=== PATIENT | female | born 1940 | race Caucasian/White ===

== ENCOUNTER 2020-10-03 19:19 | Emergency (ER) | payer MEDICARE, MEDICAID ==
--- NOTE | 2020-10-03 18:11 | CT ---
PROCEDURE INFORMATION: Exam: CT Head Without Contrast Exam date and time: 10/03/2020 5:59 PM Age: 80 years old Clinical indication: Weakness, facial; Additional info: Right weakness; Rule out stroke TECHNIQUE: Imaging protocol: Computed tomography of the head without contrast. Radiation optimization: All CT scans at this facility use at least one of these dose optimization techniques: automated exposure control; mA and/or kV adjustment per patient size (includes targeted exams where dose is matched to clinical indication); or iterative reconstruction. Other technique: STROKE PROTOCOL was implemented. COMPARISON: No relevant prior studies available. FINDINGS: Brain: Age-related involutional changes and chronic microvascular ischemic disease. No evidence for acute transcortical infarct. No mass effect or midline shift. No extra-axial collection. No acute intracranial hemorrhage. Basal cisterns are patent. Cerebral ventricles: No ventriculomegaly. Bones/joints: Unremarkable. No acute fracture. Paranasal sinuses: Visualized sinuses are unremarkable. No fluid levels. Mastoid air cells: Visualized mastoid air cells are well aerated. Orbital cavity: Bilateral cataract surgery. 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 Soft tissues: Unremarkable. IMPRESSION: 1. No evidence for acute transcortical infarct, acute intracranial hemorrhage, or mass effect. [place] Stroke Program Early CT Score (ASPECTS) = 10 2. 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
[2020-10-03 18:26] VITALS: BP 148/72; PULSE 86
[2020-10-03 18:55] LABS: ANION GAP 13.2 mEq/L (7-13); CHLORIDE,CL 92 mmol/L (98-107); SODIUM,NA 130 mmol/L (136-145)
--- NOTE | 2020-10-03 19:16 | EDM.PDOC ---
ED HPI GENERAL MEDICAL PROBLEM - General Chief Complaint: Neuro Symptoms/Deficits Stated Complaint: STROKE CODE Time Seen by Provider: 10/03/20 18:21 Source of Information: Reports: Patient, RN, RN Notes Reviewed, Other ([facility] staff nurse) History Limitations: Reports: No Limitations - History of Present Illness INITIAL COMMENTS - FREE TEXT/NARRATIVE: Patient presents to the ED via EMS from the [facility] for new onset right- sided weakness. Stroke code called prior to her arrival. Per [facility] staff the patient has been "off" all day; they state she was not as talkative or active as she normally is. A staff member noticed she had not been using her right arm very much and thought she may be having a stroke. The patient arrived to the ED alert and talking; she is accompanied by the nurse who cares for the [facility] residents. The nurse states Lorena is talking and acting like her normal self. Due to physical and mental deficits the patient is a poor hi storian, but is able to follow all verbal commands. She denies pain to all areas of her body. Per the [facility] nurse, there has been no change to her diet or medications. She has been afebrile and in good health. - Related Data Allergies Allergy/AdvReac Type Severity Reaction Status Date / Time cefprozil [From Cefzil] Allergy Cannot Verified 10/03/20 18:26 Remember Cephalosporins Allergy Cannot Verified 10/03/20 18:26 Remember haloperidol [From Haldol] Allergy Cannot Verified 10/03/20 18:26 Remember haloperidol lactate Allergy Cannot Verified 10/03/20 18:26 [From Haldol] Remember Home Meds: Home Meds Ascorbate Calcium [Vitamin C] 500 mg PO BID 02/28/15 [History] Imipramine HCl [Imipramine] 25 mg PO BEDTIME 02/28/15 [History] Mineral Oil 45 ml PO DAILY 02/28/15 [History] Mirabegron [Myrbetriq] 50 mg PO DAILY 02/28/15 [History] Multivitamin [Multi-Vitamin Daily] 1 tab PO DAILY 02/28/15 [History] Potassium Chloride 20 meq PO DAILY 02/28/15 [History] Psyllium Seed (With Sugar) [Natural Fiber Lax Powder] 1 tbsp PO TID 02/28/15 [History] Raloxifene [Evista] 60 mg PO DAILY 02/28/15 [History] Sennosides/Docusate Sodium [Senna-Docusate Sodium] 1 tab PO BID 02/28/15 [History] risperiDONE [RisperiDAL] 0.5 mg PO BID 02/28/15 [History] Triamterene/Hydrochlorothiazid [Dyazide 37.5-25] 1 tab PO DAILY 05/17/16 [History] Past Medical History HEENT History: Reports: Impaired Vision Other HEENT History: wears glasses Cardiovascular 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 Respiratory 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 Gastrointestinal History: Reports: Chronic Constipation Genitourinary History: Reports: Urinary Incontinence 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 Musculoskeletal History: Reports: Osteoporosis Neurological 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 Psychiatric History: Reports: Depression, Other (See Below) Other Psychiatric History: Delirim, depressive disorder, severe intellectual disabilities Endocrine/Metabolic 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 Hematologic 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 Immunologic 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 Oncologic (Cancer) 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 Dermatologic 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 - Infectious Disease History Infectious Disease 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 - Past Surgical History Head Surgeries/Procedures: Reports: None Social & Family History - Family History Family Medical History: Noncontributory - Tobacco Use Tobacco Use Status *Q: Never Tobacco User Second Hand Smoke Exposure: No - Caffeine Use Caffeine Use: Reports: None - Recreational Drug Use Recreational Drug Use: No - Living Situation & Occupation Living situation: Reports: Single, Extended Care Facility Occupation: Disabled ED ROS GENERAL - Review of Systems Review Of Systems: Comprehensive ROS is negative, except as noted in HPI. ED EXAM, NEURO - Physical Exam Exam: See Below Exam Limited By: Physical Impairment General Appearance: Alert, No Apparent Distress Eye Exam: Right Eye: Other (Exotropia ), Left Eye: EOMI, Bilateral Eye: PERRL Ears: Normal External Exam, Normal Canal Nose: Normal Inspection, Normal Mucosa, No Blood ( ) Throat/Mouth: Normal Inspection, No Airway Compromise Head Exam: Atraumatic Neck: Normal Inspection, Supple, Non-Tender Respiratory/Chest: No Respiratory Distress, Lungs Clear, Normal Breath Sounds, No Accessory Muscle Use, Chest Non-Tender Cardiovascular: Regular Rate, Rhythm, No Edema, No Gallop, No JVD, No Rub, Systolic Murmur (3/6; Loudest over the pulmonic area) GI/Abdominal: Normal Bowel Sounds, Soft, Non-Tender, No Distention, No Mass Neurological: Alert, Normal Mood/Affect, CN II-XII Intact, No Motor/Sensory Deficits, Withdraws to Pain (To all four extremities and trunk), Other (Moves all extremities to command) Back Exam: Normal Inspection, Decreased Range of Motion (Normal for patient d/t body habitus; Kyphosis). No: CVA Tenderness (L), CVA Tenderness (R) Extremities: Normal Inspection, Normal Range of Motion, Non-Tender, No Pedal Edema, Normal Capillary Refill Skin Exam: Warm, Dry, Intact, Normal Color, No Rash. No: Ecchymosis, Erythema, Mottled, Pallor, Petechiae #1 Interpretation EKG Date: 10/03/20 Time: 18:56 Rhythm: NSR Rate (Beats/Min): 76 [place]: Normal P-Wave: Present QRS: Normal ST-T: Normal QT: Normal Comparison: NA - No Prior EKG (NSR; No evidence of acute ischemia) Course - Vital Signs Last Recorded V/S: Last Vital Signs Temp 95.8 F L 10/03/20 18:09 Pulse 86 10/03/20 18:09 Resp 18 10/03/20 18:09 BP 148/72 H 10/03/20 18:09 Pulse Ox 95 10/03/20 18:09 - Orders/Labs/Meds Labs: Laboratory Tests 10/03/20 10/03/20 10/03/20 Range/Units 18:11 18:11 18:11 WBC 5.0 (5.0-10.0) 10^3/uL RBC 3.78 L (4.2-5.4) 10^6/uL Hgb 11.1 L D (12.0-16.0) g/dL Hct 33.0 L (37.0-47.0) % MCV 87.3 (80-100) fL MCH 29.4 (27.0-34.0) pg MCHC 33.6 (33.0-35.0) g/dL Plt Count 180 D (150-450) 10^3/uL Neut % (Auto) 54.6 (42.2-75.2) % Lymph % (Auto) 23.6 (20.5-50.1) % [place] % (Auto) 16.6 H (2-8) % Eos % (Auto) 4.6 H (1.0-3.0) % Baso % (Auto) 0.6 (0.0-1.0) % PT (9.0-12.0) SEC INR (0.9-1.2) APTT (22.0-34.0) SEC D-Dimer, Quantitative (0-400) ng/mL Sodium 130 L (136-145) mmol/L Potassium 4.2 (3.5-5.1) mmol/L Chloride 92 L (98-107) mmol/L Carbon Dioxide 29 (21-32) mmol/L Anion Gap 13.2 H (7-13) mEq/L BUN 17 (7-18) mg/dL Creatinine 0.81 (0.55-1.02) mg/dL Est Cr Clr Drug Dosing 43.19 mL/min Estimated GFR (MDRD) > 60 BUN/Creatinine Ratio 21.0 (No establ ref range) Glucose 108 H (74-99) mg/dL Lactic Acid 4.8 H* (0.4-2.0) mmol/L Calcium 9.1 (8.5-10.1) mg/dL Phosphorus 4.0 (2.6-4.7) mg/dL Magnesium 1.8 (1.8-2.4) mg/dL Total Bilirubin 0.5 (0.2-1.0) mg/dL AST 40 H (15-37) U/L ALT 48 (14-59) U/L Alkaline Phosphatase 119 H (46-116) U/L Troponin I < 0.017 (0.000-0.056) ng/mL C-Reactive Protein 4.6 H (0.0-0.9) mg/dL Total Protein 7.1 (6.4-8.2) g/dL Albumin 3.4 (3.4-5.0) g/dL Globulin 3.7 Albumin/Globulin Ratio 0.9 //20 Range/Units 18:11 WBC (5.0-10.0) 10^3/uL RBC (4.2-5.4) 10^6/uL Hgb (12.0-16.0) g/dL Hct (37.0-47.0) % MCV (80-100) fL MCH (27.0-34.0) pg MCHC (33.0-35.0) g/dL Plt Count (150-450) 10^3/uL Neut % (Auto) (42.2-75.2) % Lymph % (Auto) (20.5-50.1) % [place] % (Auto) (2-8) % Eos % (Auto) (1.0-3.0) % Baso % (Auto) (0.0-1.0) % PT 10.9 (9.0-12.0) SEC INR 1.2 (0.9-1.2) APTT 37.0 H (22.0-34.0) SEC D-Dimer, Quantitative 253 (0-400) ng/mL Sodium (136-145) mmol/L Potassium (3.5-5.1) mmol/L Chloride (98-107) mmol/L Carbon Dioxide (21-32) mmol/L Anion Gap (7-13) mEq/L BUN (7-18) mg/dL Creatinine (0.55-1.02) mg/dL Est Cr Clr Drug Dosing mL/min Estimated GFR (MDRD) BUN/Creatinine Ratio (No establ ref range) Glucose (74-99) mg/dL Lactic Acid (0.4-2.0) mmol/L Calcium (8.5-10.1) mg/dL Phosphorus (2.6-4.7) mg/dL Magnesium (1.8-2.4) mg/dL Total Bilirubin (0.2-1.0) mg/dL AST (15-37) U/L ALT (14-59) U/L Alkaline Phosphatase (46-116) U/L Troponin I (0.000-0.056) ng/mL C-Reactive Protein (0.0-0.9) mg/dL Total Protein (6.4-8.2) g/dL Albumin (3.4-5.0) g/dL Globulin Albumin/Globulin Ratio - Radiology Interpretation Free Text/Narrative:: [facility] Final Radiology Report Call: [phone] assistance Online chat: [email or web address] Name: LORENA SHI Age: 80Years F Date: 10/03/2020 SSN: -- : [id number] Study: CT HEAD WO CONT Requesting Physician: Alee Strauss Images: 200 Addl Studies: Provided Clinical History: Right weakness; Rule out stroke Contrast: Without Contrast Medium: Contrast Amount: Contrast Method: Page 1 of 2 PROCEDURE INFORMATION: Exam: CT Head Without Contrast Exam date and time: 10/03/2020 5:59 PM Age: 80 years old Clinical indication: Weakness, facial; Additional info: Right weakness; Rule out stroke TECHNIQUE: Imaging protocol: Computed tomography of the head without contrast. Radiation optimization: All CT scans at this facility use at least one of these dose optimization techniques: automated exposure control; mA and/or kV adjustment per patient size (includes targeted exams where dose is matched to clinical indication); or iterative re construction. Other technique: STROKE PROTOCOL was implemented. COMPARISON: No relevant prior studies available. FINDINGS: Brain: Age-related involutional changes and chronic microvascular ischemic di sease. No evidence for acute transcortical infarct. No mass effect or midline shift. No extra-axial collection. No acute intracranial hemorrhage. Basal cisterns are patent. Cerebral ventricles: No ventriculomegaly. Bones/joints: Unremarkable. No acute fracture. Paranasal sinuses: Visualized sinuses are unremarkable. No fluid levels. Mastoid air cells: Visualized mastoid air cells are well aerated. Orbital cavity: Bilateral cataract surgery. 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 Soft tissues: Unremarkable. IMPRESSION: 1. No evidence for acute transcortical infarct, acute intracranial hemorrhage, or mass effect. [place] Stroke Program Early CT Score (ASPECTS) = 10 JOSE GUADALUPELORENA | Final Radiology Report CONFIDENTIALITY STATEMENT This report is intended only for use by the referring physician, and only in accordance with law. If you received this in error, call [phone]. Page 2 of 2 2. 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 Thank you for allowing us to participate in the care of your patient. - Re-Assessments/Exams Free Text/Narrative Re-Assessment/Exam: 10/03/2020 CT negative for stroke; 1.3 cm mass noted to superolateral right orbit. Lactic acid elevated at 4.5 Discussed this finding with the REM nurse could be indicative of new onset seizure activity. Discussed following up with primary care provider regarding possibility of outpatient neuro consult. The REM nurse verbalized understanding and agreement with the plan of care. Departure - Departure Time of Disposition: 19:20 Disposition: DC/Tfer to [facility] Condition: Good Clinical Impression: Right arm weakness - Discharge Information *PRESCRIPTION DRUG MONITORING PROGRAM REVIEWED*: Not Applicable *COPY OF PRESCRIPTION DRUG MONITORING REPORT IN PATIENT EVELIO: Not Applicable Referrals: Antonio Bell MD [Primary Care Provider] - Forms: ED Department Discharge Additional Instructions: CT of head negative for stroke. Follow up with primary care provider regarding findings of today's visit. Consider neurology consult should symptoms return. Sepsis Event Note (ED) - Evaluation Sepsis Screening Result: No Definite Risk
== END 2020-10-03 19:41 ==
LOC: DL.ED 19:19
DX: M62.81 Muscle weakness (generalized) (principal); F32.9 Major depressive disorder, single episode, unspecified; Z79.899 Other long term (current) drug therapy; Z88.1 Allergy status to other antibiotic agents; Z88.8 Allergy status to other drugs, medicaments and biological substances
CPT/HCPCS: 36415; 70450; 80053; 83605; 83735; 84100; 84484; 85025; 85379; 85610; 85730; 86140; 87040; 93005; 99285-25

== ENCOUNTER 2020-10-13 04:12 | Emergency (ER) | payer MEDICARE, MEDICAID ==
[2020-10-13 04:20] VITALS: BP 102/50; PULSE 74
[2020-10-13 05:19] LABS: ANION GAP 13.3 mEq/L (7-13); CHLORIDE,CL 88 mmol/L (98-107); SODIUM,NA 122 mmol/L (136-145)
[2020-10-13] MEDS ORDERED: Sodium Chloride 0.9% 500 ML IV SCH (05:30)
--- NOTE | 2020-10-13 06:55 | EDM.PDOC ---
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 She had severe developmental delay as well as multiple mental health issues. She is on multiple psychoactive medications. senior living staff report that this morning she had a seizure that lasted about 60 seconds. They called the ambulance, when ambulance arrived, they observed a second 60 second seizure. She is arousable, but very sleepy. child welfare caseworker does not report any other symptoms the past 48 hours. In doing a chart review, I note that she does not currently have a diagnosis of sleep apnea. (Jam Cortez) - Related Data Allergies Allergy/AdvReac Type Severity Reaction Status Date / Time cefprozil [From Cefzil] Allergy Cannot Verified 10/13/20 04:39 Remember Cephalosporins Allergy Cannot Verified 10/13/20 04:39 Remember haloperidol [From Haldol] Allergy Cannot Verified 10/13/20 04:39 Remember haloperidol lactate Allergy Cannot Verified 10/13/20 04:39 [From Haldol] Remember Home Meds: Home Meds Ascorbate Calcium [Vitamin C] 500 mg PO BID 02/28/15 [History] Imipramine HCl [Imipramine] 25 mg PO BEDTIME 02/28/15 [History] Mirabegron [Myrbetriq] 50 mg PO DAILY 02/28/15 [History] Multivitamin [Multi-Vitamin Daily] 1 tab PO DAILY 02/28/15 [History] Potassium Chloride 20 meq PO DAILY 02/28/15 [History] Psyllium Seed (With Sugar) [Natural Fiber Lax Powder] 1 tbsp PO TID 02/28/15 [History] Sennosides/Docusate Sodium [Senna-Docusate Sodium] 1 tab PO BID 02/28/15 [History] risperiDONE [RisperiDAL] 0.5 mg PO BID 02/28/15 [History] Triamterene/Hydrochlorothiazid [Dyazide 37.5-25] 1 tab PO ASDIRECTED 05/17/16 [History] Alendronate Sodium [Fosamax] 70 mg PO Q7D 10/13/20 [History] Cholecalciferol (Vitamin D3) [Vitamin D3] 1,000 units PO DAILY 10/13/20 [History] Erythromycin Base [Erythromycin 0.5% Ophth Oint] 1 applic EYEBOTH BEDTIME 10/13/20 [History] Naproxen 500 mg PO Q12H 10/13/20 [History] Oxybutynin [Oxybutynin ER] 5 mg PO DAILY 10/13/20 [History] Torsemide [Demadex] 20 mg PO DAILY 10/13/20 [History] Past Medical History HEENT History: Reports: Impaired Vision Other HEENT History: wears glasses Cardiovascular 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 Respiratory 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 Gastrointestinal History: Reports: Chronic Constipation Genitourinary History: Reports: Urinary Incontinence 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 Musculoskeletal History: Reports: Osteoporosis Neurological 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 Psychiatric History: Reports: Depression, Other (See Below) Other Psychiatric History: Delirim, depressive disorder, severe intellectual disabilities Endocrine/Metabolic 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 Hematologic 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 Immunologic 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 Oncologic (Cancer) 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 Dermatologic 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 - Infectious Disease History Infectious Disease 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 - Past Surgical History Head Surgeries/Procedures: Reports: None <Jam Cortez - Last Filed: 10/13/20 06:50> Social & Family History - Family History Family Medical History: No Pertinent Family History - Tobacco Use Tobacco Use Status *Q: Never Tobacco User Second Hand Smoke Exposure: No - Caffeine Use Caffeine Use: Reports: None - Recreational Drug Use Recreational Drug Use: No - Living Situation & Occupation Living situation: Reports: Single, Extended Care Facility Occupation: Disabled <Jam Cortez - Last Filed: 10/13/20 06:50> ED ROS GENERAL - Review of Systems Review Of Systems: Unable To Obtain Reason Not Obtained: Altered mental status <Jam Cortez - Last Filed: 10/13/20 06:50> - Physical Exam Exam: See Below <aJm Cortez - Last Filed: 10/13/20 06:50> - Physical Exam Text/Narrative:: General: Lorena is a 80-year-old woman in no acute distress. She is showing no signs of respiratory distress, no tachypnea or accessory muscle use Oropharynx is clear, mucous membranes are moist Neck: Supple, no lymphadenopathy Heart: Regular rate and rhythm, 2 out of 6 systolic murmur over the left sternal border Lungs: Clear to auscultation throughout Neurological: Neurological exam is difficult secondary to her developmental delay as well as her altered mental status and post ictal state. She is moving all of her extremities, and attempts to sit up on her own. No obvious neurological deficit is noted EKG shows normal sinus rhythm with a first-degree AV block. We do not have any previous EKGs to compare to. (Jam Cortez) Course <Jam Cortez - Last Filed: 10/13/20 06:50> <Shari Vergara - Last Filed: 10/13/20 09:17> - Vital Signs Last Recorded V/S: Last Vital Signs Temp 95.9 F L 10/13/20 04:13 Pulse 74 10/13/20 04:13 Resp 12 10/13/20 04:13 BP 102/50 L 10/13/20 04:13 Pulse Ox 92 L 10/13/20 04:13 - Orders/Labs/Meds Orders: Active Orders 24 hr Category Date Time Status CULTURE URINE [RM] Stat Lab 10/13/20 08:50 Received Sodium Chloride 0.9% [Normal Saline] 500 ml Med 10/13/20 05:30 Active IV .BOLUS Medication Orders Sodium Chloride (Normal Saline) 500 mls @ 999 mls/hr IV .BOLUS GLENNY Last Admin: 10/13/20 05:38 Dose: 999 mls/hr Documented by: SHASTA Labs: Laboratory Tests 10/13/20 10/13/20 10/13/20 Range/Units 04:50 04:50 07:51 WBC 6.7 (5.0-10.0) 10^3/uL RBC 3.43 L (4.2-5.4) 10^6/uL Hgb 10.2 L (12.0-16.0) g/dL Hct 29.4 L (37.0-47.0) % MCV 85.7 (80-100) fL MCH 29.7 (27.0-34.0) pg MCHC 34.7 (33.0-35.0) g/dL Plt Count 158 (150-450) 10^3/uL Neut % (Auto) 66.8 (42.2-75.2) % Lymph % (Auto) 12.7 L (20.5-50.1) % [place] % (Auto) 17.5 H (2-8) % Eos % (Auto) 2.7 (1.0-3.0) % Baso % (Auto) 0.3 (0.0-1.0) % Sodium 122 L (136-145) mmol/L Potassium 4.3 (3.5-5.1) mmol/L Chloride 88 L (98-107) mmol/L Carbon Dioxide 25 (21-32) mmol/L Anion Gap 13.3 H (7-13) mEq/L BUN 16 (7-18) mg/dL Creatinine 0.75 (0.55-1.02) mg/dL Est Cr Clr Drug Dosing 46.65 mL/min Estimated GFR (MDRD) > 60 BUN/Creatinine Ratio 21.3 (No establ ref range) Glucose 91 (74-99) mg/dL Calcium 8.6 (8.5-10.1) mg/dL Total Bilirubin 0.4 (0.2-1.0) mg/dL AST 51 H (15-37) U/L ALT 70 H (14-59) U/L Alkaline Phosphatase 110 (46-116) U/L Troponin I < 0.017 < 0.017 (0.000-0.056) ng/mL Total Protein 6.1 L (6.4-8.2) g/dL Albumin 2.8 L (3.4-5.0) g/dL Globulin 3.3 Albumin/Globulin Ratio 0.85 Urine Color (YELLOW) Urine Appearance (CLEAR) Urine pH (5.0-9.0) Ur Specific [place] (1.005-1.030) Urine Protein (NEGATIVE) Urine Glucose (UA) (NEGATIVE) Urine Ketones (NEGATIVE) Urine Occult Blood (NEGATIVE) Urine Nitrite (NEGATIVE) Urine Bilirubin (NEGATIVE) Urine Urobilinogen (0.2-1.0) mg/dL Ur Leukocyte Esterase (NEGATIVE) Urine RBC /HPF Urine WBC (0-5/HPF) /HPF Ur Epithelial Cells (NOT SEEN) /HPF Triple Phos Crystals (NOT SEEN) /HPF Amorphous Sediment (NOT SEEN) /HPF Urine Bacteria (0-FEW/HPF) /HPF Urine Mucus (NOT SEEN) /LPF 10/13/20 Range/Units 08:50 WBC (5.0-10.0) 10^3/uL RBC (4.2-5.4) 10^6/uL Hgb (12.0-16.0) g/dL Hct (37.0-47.0) % MCV (80-100) fL MCH (27.0-34.0) pg MCHC (33.0-35.0) g/dL Plt Count (150-450) 10^3/uL Neut % (Auto) (42.2-75.2) % Lymph % (Auto) (20.5-50.1) % [place] % (Auto) (2-8) % Eos % (Auto) (1.0-3.0) % Baso % (Auto) (0.0-1.0) % Sodium (136-145) mmol/L Potassium (3.5-5.1) mmol/L Chloride (98-107) mmol/L Carbon Dioxide (21-32) mmol/L Anion Gap (7-13) mEq/L BUN (7-18) mg/dL Creatinine (0.55-1.02) mg/dL Est Cr Clr Drug Dosing mL/min Estimated GFR (MDRD) BUN/Creatinine Ratio (No establ ref range) Glucose (74-99) mg/dL Calcium (8.5-10.1) mg/dL Total Bilirubin (0.2-1.0) mg/dL AST (15-37) U/L ALT (14-59) U/L Alkaline Phosphatase (46-116) U/L Troponin I (0.000-0.056) ng/mL Total Protein (6.4-8.2) g/dL Albumin (3.4-5.0) g/dL Globulin Albumin/Globulin Ratio Urine Color Yellow (YELLOW) Urine Appearance Turbid (CLEAR) Urine pH 8.0 (5.0-9.0) Ur Specific [place] 1.020 (1.005-1.030) Urine Protein 30 H (NEGATIVE) Urine Glucose (UA) Negative (NEGATIVE) Urine Ketones Negative (NEGATIVE) Urine Occult Blood Trace-intact H (NEGATIVE) Urine Nitrite Positive H (NEGATIVE) Urine Bilirubin Negative (NEGATIVE) Urine Urobilinogen 0.2 (0.2-1.0) mg/dL Ur Leukocyte Esterase Moderate H (NEGATIVE) Urine RBC 10-20 H /HPF Urine WBC >100 H (0-5/HPF) /HPF Ur Epithelial Cells Few (NOT SEEN) /HPF Triple Phos Crystals Moderate H (NOT SEEN) /HPF Amorphous Sediment Many H (NOT SEEN) /HPF Urine Bacteria Many H (0-FEW/HPF) /HPF Urine Mucus Few H (NOT SEEN) /LPF Meds: Medications Generic Name Dose Route Start Last Admin Trade Name Freq PRN Reason Stop Dose Admin Sodium Chloride 500 mls @ 999 mls/hr 10/13/20 05:30 10/13/20 05:38 Normal Saline IV 999 mls/hr .BOLUS GLENNY Administration - Re-Assessments/Exams Free Text/Narrative Re-Assessment/Exam: Nursing notes hypotension, with blood pressures of 70/30, repeated was 100/30. Normal saline bolus was started, noted improvement in her blood pressure. (Jam Cortez) Free Text/Narrative Re-Assessment/Exam: Repeat troponin was normal. Patient remained stable. She had a 25 second seizure prior to discharge. Chart review shows her sodium has been around [address] Head CT on 10/03 was negative for stroke. She was diagnosed with new onset seizures and staff was informed at that time that she needed to follow up with her PCP and neurology at that time. 10/13/20 08:26 UA consistent with UTI. Will treat with bactrim 10/13/20 09:15 (Shari Vergara) Departure <Jam Cortez - Last Filed: 10/13/20 06:50> - Departure Time of Disposition: 08:46 <Shari Vergara - Last Filed: 10/13/20 09:17> - Departure Disposition: Home, Self-Care 01 Clinical Impression: Hyponatremia, Seizure UTI (urinary tract infection) Qualifiers: Urinary tract infection type: acute cystitis Hematuria presence: with hematuria Qualified Code(s): N30.01 - Acute cystitis with hematuria - Discharge Information Instructions: Managing Non-Epileptic Seizures, Adult Forms: ED Department Discharge Additional Instructions: Recommend holding imipramine until seen by primary care provider Recommend monitoring and documenting her water intake Bactrim BID for 7 days for UTI Call/return if symptoms worsen Recommend follow up with primary care provider in 2-3 days Sepsis Event Note (ED) - Evaluation Sepsis Screening Result: No Definite Risk <Jam Cortez - Last Filed: 10/13/20 06:50> - Focused Exam Vital Signs: Vital Signs Temp Pulse Resp BP Pulse Ox 10/13/20 04:13 95.9 F L 74 12 102/50 L 92 L - My Orders Last 24 Hours: My Active Orders 10/13/20 08:50 CULTURE URINE [RM] Stat - Assessment/Plan Last 24 Hours: My Active Orders 10/13/20 08:50 CULTURE URINE [RM] Stat
== END 2020-10-13 09:08 | disposition home or self-care (01) ==
LOC: DL.ED 04:12
DX: R56.9 Unspecified convulsions (principal); E87.1 Hypo-osmolality and hyponatremia; N30.01 Acute cystitis with hematuria; R41.82 Altered mental status, unspecified; F32.9 Major depressive disorder, single episode, unspecified; I44.0 Atrioventricular block, first degree; Z88.1 Allergy status to other antibiotic agents; Z88.8 Allergy status to other drugs, medicaments and biological substances; Z79.899 Other long term (current) drug therapy
CPT/HCPCS: 36415; 80053; 81001; 84484; 85025; 87086; 87088; 87186; 93005; 99283; 99285; J7040

== ENCOUNTER 2020-10-14 10:22 | Inpatient (IN) | payer MEDICARE, MEDICAID ==
[2020-10-14] MEDS ORDERED: Ondansetron 4 MG Tab.DIS PO PRN (11:11)
[2020-10-14] MEDS ORDERED: Acetaminophen 325 MG Tab PO PRN (11:11)
[2020-10-14] MEDS ORDERED: Ondansetron 4 MG/2 ML SDV IVPUSH PRN (11:11)
--- NOTE | 2020-10-14 11:19 | PCM.HP ---
H&P History of Present Illness - General Date of Service: 10/14/20 Admit Problem/Dx: Admission Diagnosis/Problem Admission Diagnosis/Problem Altered mental status Source of Information: Detention Records, Provider History Limitations: Reports: Altered Mental Status - History of Present Illness Initial Comments - Free Text/Narative: Patient is 74-year-old female with a medical history of severe mental retardation, chronic constipation, chronic lower extremity edema, dive rticulosis, seizure disorder, aortic stenosis, recent Covid 19 pneumonia a month ago who presents with worsening cognitive impairment, abdominal pain and seizure activity. History is obtained from patient's caregivers at her facility of residence. Patient does have some cognitive impairment however, for the past 1 month, since she had COVID-19 they have noticed a progressive decline in her mental status. Patient has become more confused especially in the past 1 week. She is more forgetful even of her date of which she is usually aware of. She has had episodes of visual and auditory hallucinations, reporting seeing her parents who are late. She has had a poor appetite and generalized weakness. She now requires an assist of 2 to ambulate. Patient was noticed to be shaky and then becoming stiff with eyes rolling yesterday morning that was concerning for seizure activity. She had a similar seizure activity a week prior. Before now, she has not had any seizure in the past 2 years. She has also gained 10 pounds in the last 10 days with significant lower extremity edema. She was brought to the ER and labs showed positive nitrate and leukocyte esterase along with many bacteria significant for UTI. Sodium was 122, chloride was 88. Creatinine was within normal limits. Patient was started on Bactrim and discharged home. Due to worsening mental status and generalized weakness, patient was admitted today. She also complains of tooth pain. - Related Data Allergies/Adverse Reactions: Allergies Allergy/AdvReac Type Severity Reaction Status Date / Time cefprozil [From Cefzil] Allergy Cannot Verified 10/14/20 11:05 Remember Cephalosporins Allergy Cannot Verified 10/14/20 11:05 Remember haloperidol [From Haldol] Allergy Cannot Verified 10/14/20 11:05 Remember haloperidol lactate Allergy Cannot Verified 10/14/20 11:05 [From Haldol] Remember Home Medications: Home Meds Ascorbate Calcium [Vitamin C] 500 mg PO BID 02/28/15 [History] Imipramine HCl [Imipramine] 25 mg PO BEDTIME 02/28/15 [History] Mirabegron [Myrbetriq] 50 mg PO QPM 02/28/15 [History] Multivitamin [Multi-Vitamin Daily] 1 tab PO DAILY 02/28/15 [History] Potassium Chloride 20 meq PO DAILY 02/28/15 [History] Psyllium Seed (With Sugar) [Natural Fiber Lax Powder] 1 tbsp PO TID 02/28/15 [Hi story] Sennosides/Docusate Sodium [Senna-Docusate Sodium] 1 tab PO BID 02/28/15 [History] risperiDONE [RisperiDAL] 0.5 mg PO BID 02/28/15 [History] Triamterene/Hydrochlorothiazid [Dyazide 37.5-25] 1 tab PO Q48H 05/17/16 [History] Alendronate Sodium [Fosamax] 70 mg PO Q7D 10/13/20 [History] Cholecalciferol (Vitamin D3) [Vitamin D3] 1,000 units PO DAILY 10/13/20 [History] Erythromycin Base [Erythromycin 0.5% Ophth Oint] 1 applic EYEBOTH BEDTIME 10/13/20 [History] Naproxen 500 mg PO Q12H 10/13/20 [History] Oxybutynin [Oxybutynin ER] 5 mg PO QPM 10/13/20 [History] Torsemide [Demadex] 20 mg PO DAILY 10/13/20 [History] Ibuprofen 200 mg PO Q6H PRN 10/14/20 [History] Magnesium Hydroxide [Milk of Magnesia] 30 ml PO DAILY PRN 10/14/20 [History] Past Medical History HEENT History: Reports: Impaired Vision Other HEENT History: Glasses Cardiovascular 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 Respiratory 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 Gastrointestinal History: Reports: Chronic Constipation Genitourinary History: Reports: Urinary Incontinence PATIENT CARE DIRECTOR 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 Musculoskeletal History: Reports: Osteoporosis Neurological 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 Psychiatric History: Reports: Depression, Other (See Below) Other Psychiatric History: Delirim, depressive disorder, severe intellectual disabilities Endocrine/Metabolic 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 Hematologic 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 Immunologic 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 Oncologic (Cancer) 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 Dermatologic 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 - Infectious Disease History Infectious Disease 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 - Past Surgical History Head Surgeries/Procedures: Reports: None Social & Family History - Family History Family Medical History: No Pertinent Family History - Caffeine Use Caffeine Use: Reports: None - Living Situation & Occupation Living situation: Reports: Single, Extended Care Facility Occupation: Disabled H&P Review of Systems - Review of Systems: Review Of Systems: See Below General: Reports: Malaise, Weakness, Decreased Appetite HEENT: Reports: No Symptoms, Other (tooth pain) Pulmonary: Reports: No Symptoms Cardiovascular: Reports: No Symptoms Gastrointestinal: Reports: Abdominal Pain, Constipation Genitourinary: Reports: No Symptoms Musculoskeletal: Reports: No Symptoms Skin: Reports: No Symptoms Psychiatric: Reports: Confusion, Hallucinations Neurological: Reports: Confusion, Seizure Hematologic/Lymphatic: Reports: No Symptoms Immunologic: Reports: No Symptoms Exam - Exam Exam: See Below - Exam General: Alert, Other (uncooperative) HEENT: PERRLA, Hearing Intact, Mucosa Moist & [place], Nares Patent, Normal Nasal Septum, Posterior Pharynx Clear, Conjunctiva Clear, EOMI, EACs Clear, TMs Clear Neck: Supple Lungs: Clear to Auscultation, Normal Respiratory Effort Cardiovascular: Regular Rate, Regular Rhythm GI/Abdominal Exam: Normal Bowel Sounds, No Organomegaly, No Distention, Tender Back Exam: Normal Inspection, Full Range of Motion, NT Extremities: Normal Inspection, Normal Range of Motion, Non-Tender, Normal Capillary Refill, Pedal Edema Skin: Warm, Dry, Intact Neurological: Cranial Nerves Intact, Reflexes Equal Bilateral Neuro Extensive - Mental Status: Alert, Disorientation to Place, Disorientation to Time Neuro Extensive - Motor, Sensory, Reflexes: CN II-XII Intact, Normal Gait, Normal Reflexes Psychiatric: Alert, Normal Affect, Normal Mood - Patient Data Result Diagrams: 10/14/20 11:40 10/14/20 11:40 Problem List Initiated/Reviewed/Updated: Yes Orders Last 24hrs: Active Orders 24 hr Category Date Time Status Patient Status [ADT] Routine ADT 10/14/20 11:12 Active Antiembolic Devices [RC] PER UNIT ROUTINE Care 10/14/20 11:14 Active Intake and Output [RC] QSHIFT Care 10/14/20 11:13 Active Oxygen Therapy [RC] PRN Care 10/14/20 11:12 Active Up With Assistance [RC] ASDIRECTED Care 10/14/20 11:11 Active VTE/DVT Education [RC] PER UNIT ROUTINE Care 10/14/20 11:12 Active Vital Signs [RC] Q4H Care 10/14/20 11:12 Active Nothing per Oral Now Diet [DIET] Diet 10/14/20 Lunch Active Chest 1V Frontal [CR] Routine Exams 10/14/20 11:11 Ordered CBC WITH AUTO DIFF [HEME] Stat Lab 10/14/20 11:11 Ordered COMPREHENSIVE METABOLIC PN,CMP [CHEM] Stat Lab 10/14/20 11:11 Ordered CULTURE BLOOD [BC] Stat Lab 10/14/20 11:16 Ordered CULTURE BLOOD [BC] Stat Lab 10/14/20 11:16 Ordered Acetaminophen [TylenoL] Med 10/14/20 11:11 Ordered 650 mg PO Q4H PRN Docusate Sodium [Colace] Med 10/14/20 11:11 Ordered 100 mg PO BID PRN Heparin Sodium Med 10/14/20 14:00 Ordered 5,000 units SUBCUT Q8HR Ondansetron [Zofran ODT] Med 10/14/20 11:11 Ordered 4 mg PO Q4H PRN Ondansetron [Zofran] Med 10/14/20 11:11 Ordered 4 mg IVPUSH Q4H PRN Sodium Chloride 0.9% [Normal Saline] 1,000 ml Med 10/14/20 11:15 Ordered IV ASDIRECTED Antiembolic Hose [OM.PC] Per Unit Routine Oth 10/14/20 11:13 Ordered Blood Culture x2 Reflex Set [OM.PC] Stat Oth 10/14/20 11:11 Ordered Resuscitation Status Routine Resus Stat 10/14/20 11:11 Ordered Medication Orders Acetaminophen (Tylenol) 650 mg PO Q4H PRN PRN Reason: Pain (Mild 1-3)/fever Docusate Sodium (Colace) 100 mg PO BID PRN PRN Reason: Constipation Heparin Sodium (Porcine) (Heparin Sodium) 5,000 units SUBCUT Q8HR [facility] Sodium Chloride (Normal Saline) 1,000 mls @ 100 mls/hr IV ASDIRECTED [facility] Ondansetron HCl (Zofran) 4 mg IVPUSH Q4H PRN PRN Reason: Nausea/Vomiting Ondansetron HCl (Zofran Odt) 4 mg PO Q4H PRN PRN Reason: nausea, able to take PO Assessment/Plan Comment:: Acute encephalopathy H/o cognitive impairment Encephalopathy likely due to hyponatremia vs UTI. - Treat underlying cause UTI - Stop bactrim - Start levofloxacin - UCx pending Severe hyponatremia Sodium was 122. Now 126. Likely due to thiazide use - Start NS at 100 cc/hr - Trend sodium. Allow for no more than 6-8 point change within 24 hours - Consider brain MRI bu unsure patient will be willing to stay still for test - Hold HCTZ Probable CHF Aortic stenosis She has chronic LE edema and on echo. BNP elevated at 205. - Consider diuresis, pending direction of sodium trend - Strict I/O and daily weights Hx of seizures Seizure activity Witnessed tonic clonic seizure. Suspect this was due to hyponatremia. - Seizure precautions - Resume home meds Elevated LFTs Likely hepatic congestion - Trend LFTs
[2020-10-14 12:17] LABS: ANION GAP 9.9 mEq/L (7-13); CHLORIDE,CL 88 mmol/L (98-107); SODIUM,NA 126 mmol/L (136-145)
--- NOTE | 2020-10-14 12:28 | CR ---
EXAMINATION: Chest 1V Frontal SEX: Female AGE: 80 years CLINICAL HISTORY: 80-year-old obese institutionalized patient with clinical encephalopathy. INTERPRETATION: (Exam extremely "technically difficult" due to patient physical and mental condition i.e. patient rotated and respiratory motion artifact) No comparison films immediately available. ABNORMAL. Normal cardiac silhouette without signs of alveolar edema. *Patchy peripheral consolidation without air bronchograms suggest "groundglass" pneumonic densities. Clinical correlation please. COVID test? Blunting the right costophrenic sulcus may reflect poor technique (versus small dependent effusion). No lung mass or hilar lymphadenopathy. No focal lobar infiltrate or atelectasis. No pneumothorax or pneumomediastinum. No foreign bodies. Midline tracheal bronchial airway unremarkable.
[2020-10-14] MEDS ORDERED: Magnesium Hydroxide 400 MG/5 ML Susp 30 ML Cup PO PRN (13:08)
[2020-10-14] MEDS ORDERED: cefTRIAXone 1 GM in Sodium Chloride 0.9% 50 ML IV SCH (13:15)
[2020-10-14] MEDS: Sodium Chloride 0.9% 1,000 ML IV SCH ×2 (13:23→23:06)
[2020-10-14] MEDS: Heparin Sodium 5,000 Units/ML Vial SUBCUT SCH ×2 (16:13→22:10)
[2020-10-14] MEDS: Levofloxacin 500 MG Tab PO SCH (16:19)
[2020-10-14] MEDS: Ibuprofen 200 MG Tab PO PRN (18:09)
[2020-10-14] MEDS: risperiDONE 0.5 MG Tab PO SCH (20:37)
[2020-10-14] MEDS: Oxybutynin 5 MG Tab.ER PO SCH (20:37)
[2020-10-14] MEDS: Psyllium Husk Powder Sugar Free 5.85 GM Packet PO SCH (20:38)
[2020-10-14] MEDS: Ascorbic Acid 500 MG Tab PO SCH (20:38)
[2020-10-14] MEDS: Erythromycin Base 0.5% Ophth Oint 3.5 GM Tube EYEBOTH SCH (22:09)
[2020-10-15] MEDS: Heparin Sodium 5,000 Units/ML Vial SUBCUT SCH ×3 (05:29→23:09)
[2020-10-15 07:35] LABS: ANION GAP 11.3 mEq/L (7-13); CHLORIDE,CL 92 mmol/L (98-107); SODIUM,NA 128 mmol/L (136-145)
[2020-10-15] MEDS: Ascorbic Acid 500 MG Tab PO SCH ×2 (09:12→20:42)
[2020-10-15] MEDS: Potassium Chloride 10 MEQ Tab.ER PO SCH (09:13)
[2020-10-15] MEDS: risperiDONE 0.5 MG Tab PO SCH ×2 (09:13→20:41)
[2020-10-15] MEDS: Cholecalciferol (Vitamin D3) 25 MCG Tab PO SCH (09:13)
[2020-10-15] MEDS: Multivitamins,Therapeutic Tab PO SCH (09:14)
[2020-10-15] MEDS: Psyllium Husk Powder Sugar Free 5.85 GM Packet PO SCH ×3 (09:14→20:43)
--- NOTE | 2020-10-15 12:52 | PCM.PN ---
- General Info Date of Service: 10/15/20 Admission Dx/Problem (Free Text): Admission Diagnosis/Problem Admission Diagnosis/Problem Altered mental status Subjective Update: Patient seen and examined today. Metatarsals appears to be slowly improving as patient is no longer agitated and she is more conversational. Afebrile overnight. Functional Status: Reports: Pain Controlled - Review of Systems General: Reports: No Symptoms HEENT: Reports: No Symptoms Pulmonary: Reports: No Symptoms Cardiovascular: Reports: Edema Genitourinary: Reports: No Symptoms Musculoskeletal: Reports: No Symptoms Skin: Reports: No Symptoms Neurological: Reports: No Symptoms Psychiatric: Reports: Confusion - Patient Data Vitals - Most Recent: Last Vital Signs Temp 96.0 F L 10/15/20 08:18 Pulse 68 10/15/20 08:18 Resp 20 10/15/20 08:18 BP 144/71 H 10/15/20 08:18 Pulse Ox 96 10/15/20 08:18 Weight - Most Recent: 233 lb 12.8 oz I&O - Last 24 Hours: Intake & Output 10/14/20 10/15/20 10/15/20 22:59 06:59 14:59 Intake Total 0 1711 Balance 0 1711 Lab Results Last 24 Hours: Laboratory Results - last 24 hr 10/14/20 10/14/20 10/14/20 Range/Units 11:45 13:58 13:58 WBC (5.0-10.0) 10^3/uL RBC (4.2-5.4) 10^6/uL Hgb (12.0-16.0) g/dL Hct (37.0-47.0) % MCV (80-100) fL MCH (27.0-34.0) pg MCHC (33.0-35.0) g/dL Plt Count (150-450) 10^3/uL PT (9.0-12.0) SEC INR (0.9-1.2) Sodium (136-145) mmol/L Potassium (3.5-5.1) mmol/L Chloride (98-107) mmol/L Carbon Dioxide (21-32) mmol/L Anion Gap (7-13) mEq/L BUN (7-18) mg/dL Creatinine (0.55-1.02) mg/dL Est Cr Clr Drug Dosing mL/min Estimated GFR (MDRD) BUN/Creatinine Ratio (No establ ref range) Glucose (74-99) mg/dL Serum Osmolality 265 L (275-295) mosm/kg Calcium (8.5-10.1) mg/dL Total Bilirubin (0.2-1.0) mg/dL AST (15-37) U/L ALT (14-59) U/L Alkaline Phosphatase (46-116) U/L Ammonia < 10 L (11-32) umol/L B-Natriuretic Peptide 203 H (0-100) pg/ml Total Protein (6.4-8.2) g/dL Albumin (3.4-5.0) g/dL Globulin Albumin/Globulin Ratio Ur Random Sodium (No establ.ref range) mmol/L 10/14/20 10/14/20 10/15/20 Range/Units 18:13 20:40 06:57 WBC 6.2 (5.0-10.0) 10^3/uL RBC 3.45 L (4.2-5.4) 10^6/uL Hgb 10.3 L (12.0-16.0) g/dL Hct 29.9 L (37.0-47.0) % MCV 86.7 (80-100) fL MCH 29.9 (27.0-34.0) pg MCHC 34.4 (33.0-35.0) g/dL Plt Count 160 (150-450) 10^3/uL PT (9.0-12.0) SEC INR (0.9-1.2) Sodium 127 L (136-145) mmol/L Potassium (3.5-5.1) mmol/L Chloride (98-107) mmol/L Carbon Dioxide (21-32) mmol/L Anion Gap (7-13) mEq/L BUN (7-18) mg/dL Creatinine (0.55-1.02) mg/dL Est Cr Clr Drug Dosing mL/min Estimated GFR (MDRD) BUN/Creatinine Ratio (No establ ref range) Glucose (74-99) mg/dL Serum Osmolality (275-295) mosm/kg Calcium (8.5-10.1) mg/dL Total Bilirubin (0.2-1.0) mg/dL AST (15-37) U/L ALT (14-59) U/L Alkaline Phosphatase (46-116) U/L Ammonia (11-32) umol/L B-Natriuretic Peptide (0-100) pg/ml Total Protein (6.4-8.2) g/dL Albumin (3.4-5.0) g/dL Globulin Albumin/Globulin Ratio Ur Random Sodium 47 (No establ.ref range) mmol/L 10/15/20 10/15/20 Range/Units 06:57 06:57 WBC (5.0-10.0) 10^3/uL RBC (4.2-5.4) 10^6/uL Hgb (12.0-16.0) g/dL Hct (37.0-47.0) % MCV (80-100) fL MCH (27.0-34.0) pg MCHC (33.0-35.0) g/dL Plt Count (150-450) 10^3/uL PT 10.8 (9.0-12.0) SEC INR 1.1 (0.9-1.2) Sodium 128 L (136-145) mmol/L Potassium 4.3 (3.5-5.1) mmol/L Chloride 92 L (98-107) mmol/L Carbon Dioxide 29 (21-32) mmol/L Anion Gap 11.3 (7-13) mEq/L BUN 10 (7-18) mg/dL Creatinine 0.71 (0.55-1.02) mg/dL Est Cr Clr Drug Dosing 56.39 mL/min Estimated GFR (MDRD) > 60 BUN/Creatinine Ratio 14.1 (No establ ref range) Glucose 88 (74-99) mg/dL Serum Osmolality (275-295) mosm/kg Calcium 8.6 (8.5-10.1) mg/dL Total Bilirubin 0.5 (0.2-1.0) mg/dL AST 56 H (15-37) U/L ALT 84 H (14-59) U/L Alkaline Phosphatase 123 H (46-116) U/L Ammonia (11-32) umol/L B-Natriuretic Peptide (0-100) pg/ml Total Protein 6.6 (6.4-8.2) g/dL Albumin 3.0 L (3.4-5.0) g/dL Globulin 3.6 Albumin/Globulin Ratio 0.83 Ur Random Sodium (No establ.ref range) mmol/L [place] Results Last 24 Hours: Microbiology 10/14/20 11:50 Aerobic Blood Culture - Preliminary Blood - Arm, Right NO GROWTH AFTER 1 DAY Anaerobic Blood Culture - Final 10/14/20 11:40 Aerobic Blood Culture - Preliminary Blood - Arm, Left NO GROWTH AFTER 1 DAY Anaerobic Blood Culture - Preliminary NO GROWTH AFTER 1 DAY Med Orders - Current: Current Medications Acetaminophen (Tylenol) 650 mg PO Q4H PRN PRN Reason: Pain (Mild 1-3)/fever Last Admin: 10/14/20 14:53 Dose: 650 mg Documented by: Ascorbic Acid (Vitamin C) 500 mg PO BID [facility] Last Admin: 10/15/20 09:12 Dose: 500 mg Documented by: Cholecalciferol (Vitamin D3) 25 mcg PO DAILY [facility] Last Admin: 10/15/20 09:13 Dose: 25 mcg Documented by: Docusate Sodium (Colace) 100 mg PO BID PRN PRN Reason: Constipation Erythromycin (Erythromycin 0.5% Ophth Oint) 0 gm EYEBOTH BEDTIME [facility] Last Admin: 10/14/20 22:09 Dose: 3.5 g Documented by: Heparin Sodium (Porcine) (Heparin Sodium) 5,000 units SUBCUT Q8HR [facility] Last Admin: 10/15/20 05:29 Dose: 5,000 units Documented by: Sodium Chloride (Normal Saline) 1,000 mls @ 100 mls/hr IV ASDIRECTED [facility] Last Admin: 10/14/20 23:06 Dose: 100 mls/hr Documented by: Ibuprofen (Motrin) 200 mg PO Q6H PRN PRN Reason: Pain Last Admin: 10/14/20 18:09 Dose: 200 mg Documented by: Levofloxacin (Levaquin) 500 mg PO Q24H [facility] Last Admin: 10/14/20 16:19 Dose: 500 mg Documented by: Magnesium Hydroxide (Milk Of Magnesia) 30 ml PO DAILY PRN PRN Reason: Constipation Multivitamins (Thera) 1 each PO DAILY [facility] Last Admin: 10/15/20 09:14 Dose: 1 each Documented by: Imipramine 25 Mg (Own Med) 0 mg PO BEDTIME [facility] Myrbetriq 50 Mg (Own Med) 0 mg PO BEDTIME [facility] Ondansetron HCl (Zofran) 4 mg IVPUSH Q4H PRN PRN Reason: Nausea/Vomiting Ondansetron HCl (Zofran Odt) 4 mg PO Q4H PRN PRN Reason: nausea, able to take PO Oxybutynin Chloride (Oxybutynin Er) 5 mg PO BEDTIME [facility] Last Admin: 10/14/20 20:37 Dose: 5 mg Documented by: Potassium Chloride (Klor-Con 10) 20 meq PO DAILY@0800 [facility] Last Admin: 10/15/20 09:13 Dose: 20 meq Documented by: Psyllium Husk (Metamucil Sugar Free) 1 pkt PO TID [facility] Last Admin: 10/15/20 09:14 Dose: 1 pkt Documented by: Risperidone (Risperidal) 0.5 mg PO BID [facility] Last Admin: 10/15/20 09:13 Dose: 0.5 mg Documented by: Senna/Docusate Sodium (Senna Plus) 1 tab PO BID [facility] Last Admin: 10/15/20 09:13 Dose: 1 tab Documented by: Discontinued Medications Ceftriaxone Sodium 1 gm/ (Sodium Chloride) 50 mls @ 100 mls/hr IV Q24H [facility] Last Admin: 10/14/20 16:44 Dose: Not Given Documented by: - Exam General: Alert, Oriented HEENT: Pupils Equal, Pupils Reactive, EOMI, Mucous Membr. Moist/[place] Neck: Supple Lungs: Clear to Auscultation, Normal Respiratory Effort Cardiovascular: Regular Rate, Regular Rhythm GI/Abdominal Exam: Normal Bowel Sounds, Soft, Non-Tender, No Organomegaly, No Distention, No Abnormal Bruit, No Mass, Pelvis Stable Back Exam: Normal Inspection, Full Range of Motion Extremities: Pedal Edema Skin: Warm, Dry, Intact Neurological: No New Focal Deficit Psy/Mental Status: Alert, Normal Affect, Normal Mood Sepsis Event Note - Evaluation Sepsis Screening Result: No Definite Risk - Focused Exam Vital Signs: Vital Signs Temp Pulse Resp BP BP Pulse Ox 10/15/20 08:18 96.0 F L 68 20 144/71 H 96 10/15/20 04:36 96.2 F L 77 16 122/44 L 96 - Problem List Review Problem List Initiated/Reviewed/Updated: Yes - My Orders Last 24 Hours: My Active Orders 10/14/20 11:50 CULTURE BLOOD [BC] Stat 10/14/20 13:05 Code Status [Resuscitation Status] Routine 10/14/20 13:08 Ibuprofen [Motrin] 200 mg PO Q6H PRN Magnesium Hydroxide [Milk of Magnesia] 30 ml PO DAILY PRN 10/14/20 14:00 Heparin Sodium 5,000 units SUBCUT Q8HR 10/14/20 15:00 levoFLOXacin [Levaquin] 500 mg PO Q24H 10/14/20 Dinner Heart Healthy Diet [DIET] 10/14/20 20:40 OSMOLALITY - URINE Routine 10/14/20 21:00 Ascorbic Acid [Vitamin C] 500 mg PO BID Docusate Sodium/Sennosides [Senna Plus] 1 tab PO BID Erythromycin Base [Erythromycin 0.5% Ophth Oint] 0 gm EYEBOTH BEDTIME Oxybutynin [Oxybutynin ER] 5 mg PO BEDTIME Psyllium Husk/Aspartame [Metamucil Sugar Free] 1 pkt PO TID risperiDONE [RisperiDAL] 0.5 mg PO BID 10/15/20 08:00 Potassium Chloride [Klor-Con 10] 20 meq PO DAILY@0800 10/15/20 09:00 Cholecalciferol (Vitamin D3) [Vitamin D3] 25 mcg PO DAILY Multivitamins,Therapeutic [Thera] 1 each PO DAILY 10/15/20 14:00 SODIUM,NA [CHEM] 14 10/15/20 21:00 Imipramine HCl [Imipramine] 0 mg PO BEDTIME Mirabegron [Myrbetriq] 0 mg PO BEDTIME - Plan Plan:: Acute encephalopathy H/o cognitive impairment Encephalopathy likely due to hyponatremia vs UTI. - Treat underlying cause Slowly improving UTI - Stop bactrim - Continue levofloxacin for total of 5 days - UCx pending Severe hyponatremia Sodium was 122. Now 128. Likely due to thiazide use vs CHF - Continue NS at 100 cc/hr - Trend sodium. Allow for no more than 6-8 point change within 24 hours - Consider brain MRI but unsure patient will be willing to stay still for test - Hold HCTZ Probable CHF Moderate Aortic stenosis She has chronic LE edema and on past echo. BNP elevated at 205. - Consider diuresis, pending direction of sodium trend - Strict I/O and daily weights TTE shows grade II diastolic dysfunction and normal EF with moderate Hx of seizures Seizure activity Witnessed tonic clonic seizure. Suspect this was due to hyponatremia. - Seizure precautions - Resume home meds Elevated LFTs Likely hepatic congestion - Trend LFTs
[2020-10-15] MEDS: Docusate Sodium 100 MG Cap PO PRN (13:05)
[2020-10-15] MEDS: Levofloxacin 500 MG Tab PO SCH (15:11)
[2020-10-15] MEDS: Ibuprofen 200 MG Tab PO PRN (20:41)
[2020-10-15] MEDS: Oxybutynin 5 MG Tab.ER PO SCH (20:41)
[2020-10-15] MEDS: Erythromycin Base 0.5% Ophth Oint 3.5 GM Tube EYEBOTH SCH (20:44)
[2020-10-15] MEDS: MYRBETRIQ 50 MG PO SCH (20:48)
[2020-10-15] MEDS: IMIPRAMINE 25 MG PO SCH (20:48)
[2020-10-15] MEDS: Sodium Chloride 0.9% 1,000 ML IV SCH (20:51)
[2020-10-16] MEDS: Heparin Sodium 5,000 Units/ML Vial SUBCUT SCH ×3 (06:17→21:05)
[2020-10-16] MEDS: Sodium Chloride 0.9% 1,000 ML IV SCH (06:58)
[2020-10-16] MEDS ORDERED: Benzocaine/Docusate Sodium 20-283 MG/5 ML Enema RECTAL ONE (09:20)
[2020-10-16] MEDS: Ascorbic Acid 500 MG Tab PO SCH ×2 (09:47→21:05)
[2020-10-16] MEDS: Potassium Chloride 10 MEQ Tab.ER PO SCH (09:47)
[2020-10-16] MEDS: risperiDONE 0.5 MG Tab PO SCH ×2 (09:47→21:04)
[2020-10-16] MEDS: Multivitamins,Therapeutic Tab PO SCH (09:47)
[2020-10-16] MEDS: Cholecalciferol (Vitamin D3) 25 MCG Tab PO SCH (09:47)
[2020-10-16] MEDS: Psyllium Husk Powder Sugar Free 5.85 GM Packet PO SCH ×3 (09:47→21:00)
[2020-10-16] MEDS: Docusate Sodium 100 MG Cap PO PRN (09:50)
[2020-10-16 10:06] LABS: ANION GAP 10.3 mEq/L (7-13); CHLORIDE,CL 93 mmol/L (98-107); SODIUM,NA 129 mmol/L (136-145)
--- NOTE | 2020-10-16 10:49 | PCM.PN ---
- General Info Date of Service: 10/16/20 Admission Dx/Problem (Free Text): Admission Diagnosis/Problem Admission Diagnosis/Problem Altered mental status Subjective Update: Patient seen and examined today. Doing ok. No events overnight Sodium 129 this morning Functional Status: Reports: Pain Controlled - Review of Systems General: Reports: No Symptoms HEENT: Reports: No Symptoms Pulmonary: Reports: No Symptoms Cardiovascular: Reports: No Symptoms Gastrointestinal: Reports: No Symptoms Genitourinary: Reports: No Symptoms Musculoskeletal: Reports: No Symptoms Skin: Reports: No Symptoms Neurological: Reports: No Symptoms Psychiatric: Reports: No Symptoms - Patient Data Vitals - Most Recent: Last Vital Signs Temp 96.6 F L 10/16/20 08:00 Pulse 65 10/16/20 08:00 Resp 18 10/16/20 08:00 BP 120/45 L 10/16/20 08:00 Pulse Ox 96 10/16/20 08:00 Weight - Most Recent: 238 lb I&O - Last 24 Hours: Intake & Output 10/15/20 10/16/20 10/16/20 22:59 06:59 14:59 Intake Total 150 Balance 150 Lab Results Last 24 Hours: Laboratory Results - last 24 hr 10/14/20 10/15/20 10/16/20 Range/Units 20:40 13:58 09:33 Sodium 126 L 129 L (136-145) mmol/L Potassium 4.3 (3.5-5.1) mmol/L Chloride 93 L (98-107) mmol/L Carbon Dioxide 30 (21-32) mmol/L Anion Gap 10.3 (7-13) mEq/L BUN 10 (7-18) mg/dL Creatinine 0.62 (0.55-1.02) mg/dL Est Cr Clr Drug Dosing 64.58 mL/min Estimated GFR (MDRD) > 60 Glucose 79 (74-99) mg/dL Calcium 8.9 (8.5-10.1) mg/dL Urine Osmolality 344 (300-900) mosm/kg [place] Results Last 24 Hours: Microbiology 10/14/20 11:50 Aerobic Blood Culture - Preliminary Blood - Arm, Right NO GROWTH AFTER 1 DAY Anaerobic Blood Culture - Final 10/14/20 11:40 Aerobic Blood Culture - Preliminary Blood - Arm, Left NO GROWTH AFTER 1 DAY Anaerobic Blood Culture - Preliminary NO GROWTH AFTER 1 DAY Med Orders - Current: Current Medications Acetaminophen (Tylenol) 650 mg PO Q4H PRN PRN Reason: Pain (Mild 1-3)/fever Last Admin: 10/14/20 14:53 Dose: 650 mg Documented by: Ascorbic Acid (Vitamin C) 500 mg PO BID [facility] Last Admin: 10/16/20 09:47 Dose: 500 mg Documented by: Cholecalciferol (Vitamin D3) 25 mcg PO DAILY [facility] Last Admin: 10/16/20 09:47 Dose: 25 mcg Documented by: Docusate Sodium (Colace) 100 mg PO BID PRN PRN Reason: Constipation Last Admin: 10/16/20 09:50 Dose: 100 mg Documented by: Erythromycin (Erythromycin 0.5% Ophth Oint) 0 gm EYEBOTH BEDTIME [facility] Last Admin: 10/15/20 20:44 Dose: 3.5 g Documented by: Heparin Sodium (Porcine) (Heparin Sodium) 5,000 units SUBCUT Q8HR [facility] Last Admin: 10/16/20 06:17 Dose: 5,000 units Documented by: Sodium Chloride (Normal Saline) 1,000 mls @ 100 mls/hr IV ASDIRECTED [facility] Last Admin: 10/16/20 06:58 Dose: 100 mls/hr Documented by: Ibuprofen (Motrin) 200 mg PO Q6H PRN PRN Reason: Pain Last Admin: 10/15/20 20:41 Dose: 200 mg Documented by: Levofloxacin (Levaquin) 500 mg PO Q24H [facility] Stop: 10/18/20 23:00 Last Admin: 10/15/20 15:11 Dose: 500 mg Documented by: Magnesium Hydroxide (Milk Of Magnesia) 30 ml PO DAILY PRN PRN Reason: Constipation Last Admin: 10/15/20 13:05 Dose: 30 ml Documented by: Multivitamins (Thera) 1 each PO DAILY [facility] Last Admin: 10/16/20 09:47 Dose: 1 each Documented by: Imipramine 25 Mg (Own Med) 0 mg PO BEDTIME [facility] Last Admin: 10/15/20 20:48 Dose: 25 mg Documented by: Myrbetriq 50 Mg (Own Med) 0 mg PO BEDTIME [facility] Last Admin: 10/15/20 20:48 Dose: 50 mg Documented by: Ondansetron HCl (Zofran) 4 mg IVPUSH Q4H PRN PRN Reason: Nausea/Vomiting Ondansetron HCl (Zofran Odt) 4 mg PO Q4H PRN PRN Reason: nausea, able to take PO Oxybutynin Chloride (Oxybutynin Er) 5 mg PO BEDTIME [facility] Last Admin: 10/15/20 20:41 Dose: 5 mg Documented by: Potassium Chloride (Klor-Con 10) 20 meq PO DAILY@0800 [facility] Last Admin: 10/16/20 09:47 Dose: 20 meq Documented by: Psyllium Husk (Metamucil Sugar Free) 1 pkt PO TID [facility] Last Admin: 10/16/20 09:47 Dose: 1 pkt Documented by: Risperidone (Risperidal) 0.5 mg PO BID [facility] Last Admin: 10/16/20 09:47 Dose: 0.5 mg Documented by: Senna/Docusate Sodium (Senna Plus) 1 tab PO BID [facility] Last Admin: 10/16/20 09:47 Dose: 1 tab Documented by: Sodium Chloride (Sodium Chloride) 1 gm PO TID [facility] Discontinued Medications Docusate Sodium/Benzocaine (Enemeez Plus Mini Enema) 1 each RECTAL ONETIME ONE Stop: 10/16/20 09:21 Last Admin: 10/16/20 10:13 Dose: 1 each Documented by: Ceftriaxone Sodium 1 gm/ (Sodium Chloride) 50 mls @ 100 mls/hr IV Q24H [facility] Last Admin: 10/14/20 16:44 Dose: Not Given Documented by: - Exam Quality Assessment: DVT Prophylaxis General: Alert, Oriented HEENT: Pupils Equal, Pupils Reactive, EOMI, Mucous Membr. Moist/[place] Neck: Supple Lungs: Clear to Auscultation, Normal Respiratory Effort Cardiovascular: Regular Rate, Regular Rhythm GI/Abdominal Exam: Normal Bowel Sounds, Soft, Non-Tender, No Organomegaly, No Distention, No Abnormal Bruit, No Mass, Pelvis Stable (Female) Exam: Normal External Exam, Normal Speculum Exam, Normal Bimanual Exam Back Exam: Normal Inspection, Full Range of Motion Extremities: Normal Inspection, Normal Range of Motion, Non-Tender, No Pedal Edema, Normal Capillary Refill Skin: Warm, Dry, Intact Wound/Incisions: Healing Well Neurological: No New Focal Deficit Psy/Mental Status: Alert, Normal Affect, Normal Mood Sepsis Event Note - Evaluation Sepsis Screening Result: No Definite Risk - Focused Exam Vital Signs: Vital Signs Temp Pulse Resp BP Pulse Ox 10/16/20 08:00 96.6 F L 65 18 120/45 L 96 - Problem List Review Problem List Initiated/Reviewed/Updated: Yes - My Orders Last 24 Hours: My Active Orders 10/16/20 10:41 Ready for Discharge [RC] PER UNIT ROUTINE 10/16/20 14:00 Sodium Chloride 1 gm PO TID - Plan Plan:: Acute encephalopathy H/o cognitive impairment Encephalopathy likely due to hyponatremia vs UTI. Improved. Patient appears to be back at baseline Continue antibiotic for UTI UTI - Continue levofloxacin for total of 5 days - UCx pending Severe hyponatremia likely due to thiazide use vs CHF. Improving. 129 today Sodium was 122 on admit. - Continue NS at 100 cc/hr - Trend sodium. - Hold HCTZ -Start patient on Lasix Probable CHF Moderate Aortic stenosis She has chronic LE edema and on past echo. BNP elevated at 205. - IV Lasix - Strict I/O and daily weights TTE shows grade II diastolic dysfunction and normal EF with moderate Hx of seizures Seizure activity Witnessed tonic clonic seizure. Suspect this was due to hyponatremia. - Seizure precautions - Resume home meds Elevated LFTs Likely hepatic congestion - Trend LFTs
[2020-10-16] MEDS: Furosemide 40 MG Tab PO SCH (13:17)
[2020-10-16] MEDS: Sodium Chloride 1 GM Tab PO SCH ×2 (13:18→21:05)
[2020-10-16] MEDS: Levofloxacin 500 MG Tab PO SCH (15:59)
[2020-10-16] MEDS: Erythromycin Base 0.5% Ophth Oint 3.5 GM Tube EYEBOTH SCH (21:01)
[2020-10-16] MEDS: IMIPRAMINE 25 MG PO SCH (21:02)
[2020-10-16] MEDS: MYRBETRIQ 50 MG PO SCH (21:03)
[2020-10-16] MEDS: Oxybutynin 5 MG Tab.ER PO SCH (21:04)
[2020-10-17] MEDS: Heparin Sodium 5,000 Units/ML Vial SUBCUT SCH (05:11)
[2020-10-17 07:02] LABS: ANION GAP 11.1 mEq/L (7-13); CHLORIDE,CL 97 mmol/L (98-107); SODIUM,NA 134 mmol/L (136-145)
[2020-10-17] MEDS: Multivitamins,Therapeutic Tab PO SCH (08:13)
[2020-10-17] MEDS: Ascorbic Acid 500 MG Tab PO SCH (08:13)
[2020-10-17] MEDS: Cholecalciferol (Vitamin D3) 25 MCG Tab PO SCH (08:14)
[2020-10-17] MEDS: risperiDONE 0.5 MG Tab PO SCH (08:14)
[2020-10-17] MEDS: Psyllium Husk Powder Sugar Free 5.85 GM Packet PO SCH (08:15)
[2020-10-17] MEDS: Furosemide 40 MG Tab PO SCH (08:15)
[2020-10-17] MEDS: Potassium Chloride 10 MEQ Tab.ER PO SCH (08:15)
[2020-10-17] MEDS: Sodium Chloride 1 GM Tab PO SCH (08:18)
--- NOTE | 2020-10-17 11:02 | PCM.DCSUM1 ---
Discharge Summary - Hospital Course Free Text/Narrative:: Patient is 74-year-old female with a medical history of severe mental retardation, chronic constipation, chronic lower extremity edema, diverticulosis, seizure disorder, aortic stenosis, recent Covid 19 pneumonia a month ago who presents with worsening cognitive impairment, abdominal pain and seizure activity. She was found to have hyponatremia and UTI. She received IV antibiotic and IV fluid. Her confusion significantly improved. Hyponatremia resolved. Patient is monitoring her baseline. She was discharged safely back to skilled nursing. She will follow-up with PCP. Diagnosis: Stroke: No - Discharge Data Discharge Date: 10/17/20 Discharge Disposition: DC/Tfer to [facility] Ex Group Home04 Condition: Good - Referral to Home Health Primary Care Physician: Antonio Bell MD - Patient Instructions Diet: Regular Diet as Tolerated Activity: As Tolerated Driving: Do Not Drive Showering/Bathing: May Shower Notify Provider of: Fever, Increased Pain, Swelling and Redness, Nausea and/or Vomiting - Discharge Plan *PRESCRIPTION DRUG MONITORING PROGRAM REVIEWED*: Not Applicable *COPY OF PRESCRIPTION DRUG MONITORING REPORT IN PATIENT EVELIO: Not Applicable Home Medications: Home Meds Ascorbate Calcium [Vitamin C] 500 mg PO BID 02/28/15 [History] Imipramine HCl [Imipramine] 25 mg PO BEDTIME 02/28/15 [History] Mirabegron [Myrbetriq] 50 mg PO QPM 02/28/15 [History] Multivitamin [Multi-Vitamin Daily] 1 tab PO DAILY 02/28/15 [History] Potassium Chloride 20 meq PO DAILY 02/28/15 [History] Psyllium Seed (With Sugar) [Natural Fiber Lax Powder] 1 tbsp PO TID 02/28/15 [History] Sennosides/Docusate Sodium [Senna-Docusate Sodium] 1 tab PO BID 02/28/15 [History] risperiDONE [RisperiDAL] 0.5 mg PO BID 02/28/15 [History] Triamterene/Hydrochlorothiazid [Dyazide 37.5-25] 1 tab PO Q48H 05/17/16 [History] Alendronate Sodium [Fosamax] 70 mg PO Q7D 10/13/20 [History] Cholecalciferol (Vitamin D3) [Vitamin D3] 1,000 units PO DAILY 10/13/20 [History] Erythromycin Base [Erythromycin 0.5% Ophth Oint] 1 applic EYEBOTH BEDTIME 10/13/20 [History] Naproxen 500 mg PO Q12H 10/13/20 [History] Oxybutynin [Oxybutynin ER] 5 mg PO QPM 10/13/20 [History] Torsemide [Demadex] 20 mg PO DAILY 10/13/20 [History] Ibuprofen 200 mg PO Q6H PRN 10/14/20 [History] Magnesium Hydroxide [Milk of Magnesia] 30 ml PO DAILY PRN 10/14/20 [History] Patient Handouts: Confusion Referrals: Antonio Bell MD [Primary Care Provider] - - Discharge Summary/Plan Comment DC Time >30 min.: Yes - General Info Date of Service: 10/17/20 Admission Dx/Problem (Free Text: Admission Diagnosis/Problem Admission Diagnosis/Problem Altered mental status Subjective Update: Patient seen and examined today. Doing ok. No events overnight Sodium 134 this morning Functional Status: Reports: Pain Controlled - Review of Systems General: Reports: No Symptoms HEENT: Reports: No Symptoms Pulmonary: Reports: No Symptoms Cardiovascular: Reports: No Symptoms Gastrointestinal: Reports: No Symptoms Genitourinary: Reports: No Symptoms Musculoskeletal: Reports: No Symptoms Skin: Reports: No Symptoms Neurological: Reports: No Symptoms Psychiatric: Reports: No Symptoms - Patient Data Vitals - Most Recent: Last Vital Signs Temp 96.1 F L 10/17/20 08:00 Pulse 119 H 10/17/20 08:00 Resp 20 10/17/20 08:00 BP 133/98 H 10/17/20 08:00 Pulse Ox 95 10/17/20 10:28 Weight - Most Recent: 232 lb 8 oz I&O - Last 24 hours: Intake & Output 10/16/20 10/17/20 10/17/20 22:59 06:59 14:59 Intake Total 600 480 Balance 600 480 Lab Results - Last 24 hrs: Laboratory Results - last 24 hr 10/17/20 Range/Units 06:10 Sodium 134 L (136-145) mmol/L Potassium 4.1 (3.5-5.1) mmol/L Chloride 97 L (98-107) mmol/L Carbon Dioxide 30 (21-32) mmol/L Anion Gap 11.1 (7-13) mEq/L BUN 9 (7-18) mg/dL Creatinine 0.66 (0.55-1.02) mg/dL Est Cr Clr Drug Dosing 60.66 mL/min Estimated GFR (MDRD) > 60 Glucose 73 L (74-99) mg/dL Calcium 8.5 (8.5-10.1) mg/dL BHANU Results - Last 24 hrs: Microbiology 10/14/20 11:50 Aerobic Blood Culture - Preliminary Blood - Arm, Right NO GROWTH AFTER 2 DAYS Anaerobic Blood Culture - Final 10/14/20 11:40 Aerobic Blood Culture - Preliminary Blood - Arm, Left NO GROWTH AFTER 2 DAYS Anaerobic Blood Culture - Preliminary NO GROWTH AFTER 2 DAYS Med Orders - Current: Current Medications Acetaminophen (Tylenol) 650 mg PO Q4H PRN PRN Reason: Pain (Mild 1-3)/fever Last Admin: 10/14/20 14:53 Dose: 650 mg Documented by: Ascorbic Acid (Vitamin C) 500 mg PO BID [facility] Last Admin: 10/17/20 08:13 Dose: 500 mg Documented by: Cholecalciferol (Vitamin D3) 25 mcg PO DAILY [facility] Last Admin: 10/17/20 08:14 Dose: 25 mcg Documented by: Docusate Sodium (Colace) 100 mg PO BID PRN PRN Reason: Constipation Last Admin: 10/16/20 09:50 Dose: 100 mg Documented by: Erythromycin (Erythromycin 0.5% Ophth Oint) 0 gm EYEBOTH BEDTIME [facility] Last Admin: 10/16/20 21:01 Dose: 3.5 g Documented by: Furosemide (Lasix) 40 mg PO DAILY [facility] Last Admin: 10/17/20 08:15 Dose: 40 mg Documented by: Heparin Sodium (Porcine) (Heparin Sodium) 5,000 units SUBCUT Q8HR [facility] Last Admin: 10/17/20 05:11 Dose: Not Given Documented by: Ibuprofen (Motrin) 200 mg PO Q6H PRN PRN Reason: Pain Last Admin: 10/15/20 20:41 Dose: 200 mg Documented by: Levofloxacin (Levaquin) 500 mg PO Q24H [facility] Stop: 10/18/20 23:00 Last Admin: 10/16/20 15:59 Dose: 500 mg Documented by: Magnesium Hydroxide (Milk Of Magnesia) 30 ml PO DAILY PRN PRN Reason: Constipation Last Admin: 10/15/20 13:05 Dose: 30 ml Documented by: Multivitamins (Thera) 1 each PO DAILY [facility] Last Admin: 10/17/20 08:13 Dose: 1 each Documented by: Imipramine 25 Mg (Own Med) 0 mg PO BEDTIME [facility] Last Admin: 10/16/20 21:02 Dose: 25 mg Documented by: Myrbetriq 50 Mg (Own Med) 0 mg PO BEDTIME [facility] Last Admin: 10/16/20 21:03 Dose: 50 mg Documented by: Ondansetron HCl (Zofran) 4 mg IVPUSH Q4H PRN PRN Reason: Nausea/Vomiting Ondansetron HCl (Zofran Odt) 4 mg PO Q4H PRN PRN Reason: nausea, able to take PO Oxybutynin Chloride (Oxybutynin Er) 5 mg PO BEDTIME [facility] Last Admin: 10/16/20 21:04 Dose: 5 mg Documented by: Potassium Chloride (Klor-Con 10) 20 meq PO DAILY@0800 [facility] Last Admin: 10/17/20 08:15 Dose: 20 meq Documented by: Psyllium Husk (Metamucil Sugar Free) 1 pkt PO TID [facility] Last Admin: 10/17/20 08:15 Dose: 1 pkt Documented by: Risperidone (Risperidal) 0.5 mg PO BID [facility] Last Admin: 10/17/20 08:14 Dose: 0.5 mg Documented by: Senna/Docusate Sodium (Senna Plus) 1 tab PO BID [facility] Last Admin: 10/17/20 08:13 Dose: 1 tab Documented by: Sodium Chloride (Sodium Chloride) 1 gm PO TID [facility] Last Admin: 10/17/20 08:18 Dose: 1 gm Documented by: Discontinued Medications Docusate Sodium/Benzocaine (Enemeez Plus Mini Enema) 1 each RECTAL ONETIME ONE Stop: 10/16/20 09:21 Last Admin: 10/16/20 10:13 Dose: 1 each Documented by: Sodium Chloride (Normal Saline) 1,000 mls @ 100 mls/hr IV ASDIRECTED [facility] Last Admin: 10/16/20 06:58 Dose: 100 mls/hr Documented by: Ceftriaxone Sodium 1 gm/ (Sodium Chloride) 50 mls @ 100 mls/hr IV Q24H [facility] Last Admin: 10/14/20 16:44 Dose: Not Given Documented by: - Exam Quality Assessment: Reports: DVT Prophylaxis General: Reports: Alert, Oriented HEENT: Reports: Pupils Equal, Pupils Reactive, EOMI, Mucous Membr. Moist/[place] Neck: Reports: Supple Lungs: Reports: Clear to Auscultation, Normal Respiratory Effort Cardiovascular: Reports: Regular Rate, Regular Rhythm GI/Abdominal Exam: Normal Bowel Sounds, Soft, Non-Tender, No Organomegaly, No Distention, No Abnormal Bruit, No Mass, Pelvis Stable (Female) Exam: Normal External Exam, Normal Speculum Exam, Normal Bimanual Exam Rectal (Female) Exam: Normal Exam, Normal Rectal Tone Back Exam: Reports: Normal Inspection, Full Range of Motion Extremities: Normal Inspection, Normal Range of Motion, Non-Tender, No Pedal Edema, Normal Capillary Refill Skin: Reports: Warm, Dry, Intact Wound/Incisions: Reports: Healing Well Neurological: Reports: No New Focal Deficit Psy/Mental Status: Reports: Alert, Normal Affect, Normal Mood
[2020-10-17 11:50] VITALS: BP 105/46; PULSE 80
== END 2020-10-17 13:00 | DRG 690 ==
LOC: DL.MS 10:22
PROVIDERS: ADMIT Internal Medicine; ATTEND Student in an Organized Health Care Education/Training Program
DX: N39.0 Urinary tract infection, site not specified (principal); E87.1 Hypo-osmolality and hyponatremia; G93.49 Other encephalopathy; T50.2X5A Adverse effect of carbonic-anhydrase inhibitors, benzothiadiazides and other diuretics, initial encounter; I50.9 Heart failure, unspecified; I35.0 Nonrheumatic aortic (valve) stenosis; G40.409 Other generalized epilepsy and epileptic syndromes, not intractable, without status epilepticus; G31.84 Mild cognitive impairment of uncertain or unknown etiology; H54.7 Unspecified visual loss; M81.0 Age-related osteoporosis without current pathological fracture; K59.09 Other constipation; F32.9 Major depressive disorder, single episode, unspecified; K76.1 Chronic passive congestion of liver; Z28.82 Immunization not carried out because of caregiver refusal; Z09 Encounter for follow-up examination after completed treatment for conditions other than malignant neoplasm; Z86.19 Personal history of other infectious and parasitic diseases; Z88.1 Allergy status to other antibiotic agents; Z88.8 Allergy status to other drugs, medicaments and biological substances; Z79.899 Other long term (current) drug therapy
CPT/HCPCS: 36415; 71045; 80048; 80053; 82140; 83880; 83930; 83935; 84295; 84300; 85025; 85027; 85610; 87040; A9270-GY; J1644; J7030

== ENCOUNTER 2020-10-18 08:11 | Emergency (ER) | payer MEDICARE, MEDICAID ==
--- NOTE | 2020-10-18 08:49 | EDM.PDOC ---
ED HPI GENERAL MEDICAL PROBLEM - General Stated Complaint: SEIZURE Time Seen by Provider: 10/18/20 08:40 Source of Information: Reports: Provider History Limitations: Reports: No Limitations - History of Present Illness INITIAL COMMENTS - FREE TEXT/NARRATIVE: This 80 yo female patient reports to the ED due to having 2 episodes of seizure like activity. The patient is a [facility] patient with a history of seizures, but is currently not on any medications for the seizures. [facility] personnel report the patient did fall last night, but got up on her own. This morning, the patient ate breakfast. After breakfast, the patient had 2 episodes of seizure like activity (staff report her seizure activity was mostly left sided). The patient had no loss of control of bladder or bowels during the episodes and did not fall out of her chair during these episodes. The patient has recently been hospitalized and discharged due to hyponatremia and seizure like activity. The patient is currently being treated for a UTI (3 days left of antibiotics). EMS was called for the incident, but transport by ambulance was refused. Onset: Today Duration: Minutes: Location: Reports: Generalized (to the left side of the patient's body) Quality: Reports: Other Severity: Moderate Improves with: Reports: None Worsens with: Reports: None Context: Reports: Other Associated Symptoms: Reports: Seizure - Related Data Allergies Allergy/AdvReac Type Severity Reaction Status Date / Time cefprozil [From Cefzil] Allergy Cannot Verified 10/18/20 08:38 Remember Cephalosporins Allergy Cannot Verified 10/18/20 08:38 Remember haloperidol [From Haldol] Allergy Cannot Verified 10/18/20 08:38 Remember haloperidol lactate Allergy Cannot Verified 10/18/20 08:38 [From Haldol] Remember Home Meds: Home Meds Ascorbate Calcium [Vitamin C] 500 mg PO BID 02/28/15 [History] Imipramine HCl [Imipramine] 25 mg PO BEDTIME 02/28/15 [History] Mirabegron [Myrbetriq] 50 mg PO QPM 02/28/15 [History] Multivitamin [Multi-Vitamin Daily] 1 tab PO DAILY 02/28/15 [History] Potassium Chloride 20 meq PO DAILY 02/28/15 [History] Psyllium Seed (With Sugar) [Natural Fiber Lax Powder] 1 tbsp PO TID 02/28/15 [History] Sennosides/Docusate Sodium [Senna-Docusate Sodium] 1 tab PO BID 02/28/15 [History] risperiDONE [RisperiDAL] 0.5 mg PO BID 02/28/15 [History] Triamterene/Hydrochlorothiazid [Dyazide 37.5-25] 1 tab PO Q48H 05/17/16 [History] Alendronate Sodium [Fosamax] 70 mg PO Q7D 10/13/20 [History] Cholecalciferol (Vitamin D3) [Vitamin D3] 1,000 units PO DAILY 10/13/20 [History] Erythromycin Base [Erythromycin 0.5% Ophth Oint] 1 applic EYEBOTH BEDTIME 10/13/20 [History] Naproxen 500 mg PO Q12H 10/13/20 [History] Oxybutynin [Oxybutynin ER] 5 mg PO QPM 10/13/20 [History] Torsemide [Demadex] 20 mg PO DAILY 10/13/20 [History] Ibuprofen 200 mg PO Q6H PRN 10/14/20 [History] Magnesium Hydroxide [Milk of Magnesia] 30 ml PO DAILY PRN 10/14/20 [History] Sodium Chloride 1 gm PO TID #90 tablet 10/17/20 [Rx] Past Medical History HEENT History: Reports: Impaired Vision Other HEENT History: Glasses Cardiovascular 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 Respiratory 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 Gastrointestinal History: Reports: Chronic Constipation Genitourinary History: Reports: Urinary Incontinence SHELVER 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 Musculoskeletal History: Reports: Osteoporosis Neurological 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 Psychiatric History: Reports: Depression, Other (See Below) Other Psychiatric History: Delirim, depressive disorder, severe intellectual disabilities Endocrine/Metabolic 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 Hematologic 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 Immunologic 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 Oncologic (Cancer) 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 Dermatologic 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 - Infectious Disease History Infectious Disease 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 - Past Surgical History Head Surgeries/Procedures: Reports: None Social & Family History - Family History Family Medical History: No Pertinent Family History - Caffeine Use Caffeine Use: Reports: None - Living Situation & Occupation Living situation: Reports: Single, Extended Care Facility Occupation: Disabled ED ROS GENERAL - Review of Systems Review Of Systems: Comprehensive ROS is negative, except as noted in HPI. - Physical Exam Exam: See Below Exam Limited By: No Limitations General Appearance: Alert, WD/WN, Mild Distress, Obese Course - Vital Signs Last Recorded V/S: Last Vital Signs Temp 35.4 C L 10/18/20 08:51 Pulse 72 10/18/20 08:51 Resp 14 10/18/20 08:51 BP 131/60 10/18/20 08:51 Pulse Ox 96 10/18/20 08:51 - Orders/Labs/Meds Orders: Active Orders 24 hr Category Date Time Status Blood Glucose Check, Bedside [RC] ONETIME Care 10/18/20 08:13 Active EKG Documentation Completion [RC] STAT Care 10/18/20 08:13 Active CULTURE BLOOD [BC] Stat Lab 10/18/20 08:38 Received UA RFX BHANU AND CULT IF INDIC [URIN] Urgent Lab 10/18/20 08:13 Ordered Labs: Laboratory Tests 10/18/20 10/18/20 10/18/20 Range/Units 08:38 08:38 08:38 WBC 5.0 (5.0-10.0) 10^3/uL RBC 3.33 L (4.2-5.4) 10^6/uL Hgb 10.0 L (12.0-16.0) g/dL Hct 29.6 L (37.0-47.0) % MCV 88.9 (80-100) fL MCH 30.0 (27.0-34.0) pg MCHC 33.8 (33.0-35.0) g/dL Plt Count 161 (150-450) 10^3/uL Neut % (Auto) 62.8 (42.2-75.2) % Lymph % (Auto) 15.2 L (20.5-50.1) % [place] % (Auto) 18.2 H (2-8) % Eos % (Auto) 3.6 H (1.0-3.0) % Baso % (Auto) 0.2 (0.0-1.0) % Add Manual Diff Yes Neutrophils % (Manual) 63 (42-75) % Lymphocytes % (Manual) 19 L (20-50) % Atypical Lymphs % 2 % Monocytes % (Manual) 14 H (2-8) % Eosinophils % (Manual) 2 (1-3) % Nucleated RBCs 1 /100WBC Sodium 132 L (136-145) mmol/L Potassium 4.0 (3.5-5.1) mmol/L Chloride 97 L (98-107) mmol/L Carbon Dioxide 29 (21-32) mmol/L Anion Gap 10.0 (7-13) mEq/L BUN 13 (7-18) mg/dL Creatinine 0.78 (0.55-1.02) mg/dL Est Cr Clr Drug Dosing 51.33 mL/min Estimated GFR (MDRD) > 60 BUN/Creatinine Ratio 16.7 (No establ ref range) Glucose 100 H (74-99) mg/dL Lactic Acid 1.9 (0.4-2.0) mmol/L Calcium 9.3 (8.5-10.1) mg/dL Total Bilirubin 0.6 (0.2-1.0) mg/dL AST 60 H (15-37) U/L ALT 94 H (14-59) U/L Alkaline Phosphatase 121 H (46-116) U/L Troponin I < 0.017 (0.000-0.056) ng/mL Total Protein 6.6 (6.4-8.2) g/dL Albumin 3.1 L (3.4-5.0) g/dL Globulin 3.5 Albumin/Globulin Ratio 0.89 Meds: Medications Discontinued Medications Generic Name Dose Route Start Last Admin Trade Name Freq PRN Reason Stop Dose Admin Levetiracetam 1,000 mg/ Premix 200 mls @ 800 mls/hr 10/18/20 09:39 IV 10/18/20 09:40 ONETIME ONE Departure - Departure Time of Disposition: 09:48 Disposition: DC/Tfer to Acute Hospital 02 Condition: Fair Clinical Impression: Seizures - Discharge Information *PRESCRIPTION DRUG MONITORING PROGRAM REVIEWED*: Not Applicable *COPY OF PRESCRIPTION DRUG MONITORING REPORT IN PATIENT EVELIO: Not Applicable Forms: Interfacility Transfer EMTALA Care Plan Goals: Discussed the patient's history, examination, lab, EKG and CT results with Dr. Garcia (Hospitalist with [facility] in [place]). Dr. Garcia accepted the patient for continued evaluation and further treatment. The patient will be transported by [facility]. Sepsis Event Note (ED) - Focused Exam Vital Signs: Vital Signs Temp Pulse Resp BP Pulse Ox 10/18/20 08:51 35.4 C L 72 14 131/60 96 - My Orders Last 24 Hours: My Active Orders 10/18/20 08:13 Blood Glucose Check, Bedside [RC] ONETIME EKG Documentation Completion [RC] STAT UA RFX BHANU AND CULT IF INDIC [URIN] Urgent 10/18/20 08:38 CULTURE BLOOD [BC] Stat - Assessment/Plan Last 24 Hours: My Active Orders 10/18/20 08:13 Blood Glucose Check, Bedside [RC] ONETIME EKG Documentation Completion [RC] STAT UA RFX BHANU AND CULT IF INDIC [URIN] Urgent 10/18/20 08:38 CULTURE BLOOD [BC] Stat
[2020-10-18 08:51] VITALS: PULSE 72
[2020-10-18 08:57] VITALS: BP 131/60
--- NOTE | 2020-10-18 09:07 | CT ---
PROCEDURE INFORMATION: Exam: CT Head Without Contrast Exam date and time: 10/18/2020 8:47 AM Age: 80 years old Clinical indication: Other: Seizure TECHNIQUE: Imaging protocol: Computed tomography of the head without contrast. Radiation optimization: All CT scans at this facility use at least one of these dose optimization techniques: automated exposure control; mA and/or kV adjustment per patient size (includes targeted exams where dose is matched to clinical indication); or iterative reconstruction. COMPARISON: CT Head wo Cont 10/03/2020 5:59 PM FINDINGS: Brain: There is no acute intracranial hemorrhage. There is lucency in the cerebral white matter, likely microvascular disease although non-specific. 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 Donaldson white differentiation is otherwise intact without evidence acute territorial infarct. There are no extra-axial fluid collections. No evidence of mass. There is no mass effect or midline shift. Cerebral ventricles: The ventricles and sulci are enlarged, consistent with volume loss / atrophy. No hydrocephalus. Bones/joints: No acute fracture. Paranasal sinuses: There is left maxillary sinus retention cyst or polyp. Mastoid air cells: There is small amount of opacification/fluid in inferior bilateral mastoid air cells. Orbital cavity: There is stable asymmetric prominence of right lacrimal gland. Vasculature: There is vascular calcification. Soft tissues: Unremarkable as visualized. IMPRESSION: 1. No evidence of acute intracranial abnormality. No evidence of acute infarction, hemorrhage, or mass. 2. Chronic changes as described. 3. Stable prominence right lacrimal gland.
[2020-10-18 09:09] LABS: CHLORIDE,CL 97 mmol/L (98-107); SODIUM,NA 132 mmol/L (136-145)
[2020-10-18] MEDS ORDERED: levETIRAcetam in NaCl (iso-os) 1,000 MG in Premix Bag 1 BAG IV ONE ×2 (09:39)
== END 2020-10-18 10:25 ==
LOC: DL.ED 08:11
DX: R56.9 Unspecified convulsions (principal); M81.0 Age-related osteoporosis without current pathological fracture; Z88.1 Allergy status to other antibiotic agents; Z88.8 Allergy status to other drugs, medicaments and biological substances; Z79.899 Other long term (current) drug therapy
CPT/HCPCS: 36415; 70450; 80053; 82962; 83605; 84484; 85025; 87040; 93005; 96365; 99285-25; J1953

== ENCOUNTER 2020-10-26 08:36 | Emergency (ER) | payer MEDICARE, MEDICAID ==
[2020-10-26 09:08] VITALS: BP 113/46; PULSE 70
--- NOTE | 2020-10-26 09:34 | EDM.PDOC ---
ED HPI GENERAL MEDICAL PROBLEM - General Chief Complaint: General Stated Complaint: LOW PRESSURE,OXY LEVLS,NOT VERBALLY RESPONS Time Seen by Provider: 10/26/20 09:24 Source of Information: Reports: Patient History Limitations: Reports: No Limitations - History of Present Illness INITIAL COMMENTS - FREE TEXT/NARRATIVE: Patient is here for hypoxia. She was found this morning in her chair with a low spO2. She has recently been in the hospital for recurrent seizures and was started on keppra and her diuretics were stopped due to hyponatremia. She has had low spO2 for several days and was seen by her PCP yesterday who noted crackles in her lungs and increased edema in her legs. She was restarted on her diuretic. No fevers or chills. She does slump in her wheelchair, but spends most of her time at the table, writing, or in her recliner. The biggest concern is for oxygen. The home does not have oxygen available if she needs it. - Related Data Allergies Allergy/AdvReac Type Severity Reaction Status Date / Time cefprozil [From Cefzil] Allergy Cannot Verified 10/26/20 09:08 Remember Cephalosporins Allergy Cannot Verified 10/26/20 09:08 Remember haloperidol [From Haldol] Allergy Cannot Verified 10/26/20 09:08 Remember haloperidol lactate Allergy Cannot Verified 10/26/20 09:08 [From Haldol] Remember Home Meds: Home Meds Ascorbate Calcium [Vitamin C] 500 mg PO BID 02/28/15 [History] Imipramine HCl [Imipramine] 25 mg PO BEDTIME 02/28/15 [History] Mirabegron [Myrbetriq] 50 mg PO QPM 02/28/15 [History] Multivitamin [Multi-Vitamin Daily] 1 tab PO DAILY 02/28/15 [History] Potassium Chloride 20 meq PO DAILY 02/28/15 [History] Psyllium Seed (With Sugar) [Natural Fiber Lax Powder] 1 tbsp PO TID 02/28/15 [History] Sennosides/Docusate Sodium [Senna-Docusate Sodium] 1 tab PO BID 02/28/15 [History] risperiDONE [RisperiDAL] 0.5 mg PO BID 02/28/15 [History] Triamterene/Hydrochlorothiazid [Dyazide 37.5-25] 1 tab PO Q48H 05/17/16 [History] Alendronate Sodium [Fosamax] 70 mg PO Q7D 10/13/20 [History] Cholecalciferol (Vitamin D3) [Vitamin D3] 1,000 units PO DAILY 10/13/20 [History] Erythromycin Base [Erythromycin 0.5% Ophth Oint] 1 applic EYEBOTH BEDTIME 10/13/20 [History] Naproxen 500 mg PO Q12H 10/13/20 [History] Oxybutynin [Oxybutynin ER] 5 mg PO QPM 10/13/20 [History] Torsemide [Demadex] 20 mg PO DAILY 10/13/20 [History] Ibuprofen 200 mg PO Q6H PRN 10/14/20 [History] Magnesium Hydroxide [Milk of Magnesia] 30 ml PO DAILY PRN 10/14/20 [History] Sodium Chloride 1 gm PO TID #90 tablet 10/17/20 [Rx] Past Medical History HEENT History: Reports: Impaired Vision Other HEENT History: Glasses Cardiovascular 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 Respiratory 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 Gastrointestinal History: Reports: Chronic Constipation Genitourinary History: Reports: Urinary Incontinence 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 Musculoskeletal History: Reports: Osteoporosis Neurological 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 Psychiatric History: Reports: Depression, Other (See Below) Other Psychiatric History: Delirim, depressive disorder, severe intellectual disabilities Endocrine/Metabolic 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 Hematologic 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 Immunologic 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 Oncologic (Cancer) 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 Dermatologic 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 - Infectious Disease History Infectious Disease 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, Novel Coronavirus - Past Surgical History Head Surgeries/Procedures: Reports: None Social & Family History - Family History Family Medical History: No Pertinent Family History - Tobacco Use Tobacco Use Status *Q: Never Tobacco User - Caffeine Use Caffeine Use: Reports: Coffee - Recreational Drug Use Recreational Drug Use: No - Living Situation & Occupation Living situation: Reports: Single, Extended Care Facility Occupation: Disabled ED ROS GENERAL - Review of Systems Review Of Systems: Comprehensive ROS is negative, except as noted in HPI. ED EXAM, GENERAL - Physical Exam Exam: See Below Exam Limited By: Other (cognitive delay, care team assistant was present) General Appearance: WD/WN, No Apparent Distress Eye Exam: Bilateral Eye: Normal Inspection Ears: Normal External Exam Head: Atraumatic, Normocephalic Neck: Normal Inspection, Supple Respiratory/Chest: No Respiratory Distress, No Accessory Muscle Use, Crackles. No: Wheezing Cardiovascular: Normal Peripheral Pulses, Regular Rate, Rhythm, No Gallop, No Murmur, No Rub, Other (bilateral pitting edema) GI/Abdominal: Soft, Non-Tender (Female) Exam: Deferred Rectal (Female) Exam: Deferred Extremities: Normal Inspection, Pedal Edema Neurological: Other (delayed at baseline) Psychiatric: Other (delayed at baseline) Skin Exam: Warm, Dry, Intact Lymphatic: No Adenopathy Course - Vital Signs Last Recorded V/S: Last Vital Signs Temp 95.1 F L 10/26/20 08:54 Pulse 70 10/26/20 08:54 Resp 16 10/26/20 08:54 BP 113/46 L 10/26/20 08:54 Pulse Ox 82 L 10/26/20 08:54 - Re-Assessments/Exams Free Text/Narrative Re-Assessment/Exam: CBC, CMP and UA from yesterday in clinic reviewed CXR today with increased edema noted 10/26/20 11:22 Departure - Departure Time of Disposition: 11:23 Disposition: Home, Self-Care 01 Condition: Fair Clinical Impression: CHF, Congestive heart failure, Hypoxemia Pulmonary edema Qualifiers: Chronicity: acute Qualified Code(s): J81.0 - Acute pulmonary edema - Discharge Information Instructions: Hypoxemia, Pulmonary Edema, [id number] Forms: ED Department Discharge Additional Instructions: Home oxygen, titrate to maintain oxygen saturations >94% Continue diuretics as prescribed Follow up with primary care provider in 3-5 days If symptoms change or worsen call/return to the ER. Sepsis Event Note (ED) - Evaluation Sepsis Screening Result: No Definite Risk - Focused Exam Vital Signs: Vital Signs Temp Pulse Resp BP Pulse Ox 10/26/20 08:54 95.1 F L 70 16 113/46 L 82 L
--- NOTE | 2020-10-26 09:42 | CR ---
PROCEDURE INFORMATION: Exam: XR Chest, 1 View Exam date and time: 10/26/2020 9:31 AM Age: 80 years old Clinical indication: Shortness of breath TECHNIQUE: Imaging protocol: XR of the chest Views: 1 view. COMPARISON: CR Chest 1V Frontal 10/14/2020 11:59 AM FINDINGS: Limitations: Underpenetration. Lungs: Lung volumes are low. A moderate right pleural effusion is mildly increased in size. The left costophrenic angle is sharp. There are increasing hazy and patchy airspace opacities bilaterally, suggesting worsening edema and/or pneumonia. Pleural space: No pneumothorax is identified. Heart/Mediastinum: Unremarkable. No cardiomegaly. Bones/joints: Unremarkable. IMPRESSION: Worsening edema and/or pneumonia as compared with 10/14/20, with mildly increased, now moderate right pleural effusion.
== END 2020-10-26 11:42 | disposition home or self-care (01) ==
LOC: DL.ED 08:36
DX: I50.1 Left ventricular failure, unspecified (principal); R09.02 Hypoxemia; F32.9 Major depressive disorder, single episode, unspecified; Z79.899 Other long term (current) drug therapy; Z88.1 Allergy status to other antibiotic agents; Z88.8 Allergy status to other drugs, medicaments and biological substances
CPT/HCPCS: 71045; 99284-25

== ENCOUNTER 2020-10-28 02:31 | Inpatient (IN) | payer MEDICARE, MEDICAID ==
--- NOTE | 2020-10-28 02:54 | EDM.PDOC ---
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 tonight low O2 and low BP. pt arrived alert with O2 mask @ 2L. - Related Data Allergies Allergy/AdvReac Type Severity Reaction Status Date / Time cefprozil [From Cefzil] Allergy Cannot Verified 10/28/20 03:15 Remember Cephalosporins Allergy Cannot Verified 10/28/20 03:15 Remember haloperidol [From Haldol] Allergy Cannot Verified 10/28/20 03:15 Remember haloperidol lactate Allergy Cannot Verified 10/28/20 03:15 [From Haldol] Remember Home Meds: Home Meds Ascorbate Calcium [Vitamin C] 500 mg PO BID 02/28/15 [History] Imipramine HCl [Imipramine] 25 mg PO BEDTIME 02/28/15 [History] Mirabegron [Myrbetriq] 50 mg PO QPM 02/28/15 [History] Multivitamin [Multi-Vitamin Daily] 1 tab PO DAILY 02/28/15 [History] Potassium Chloride 20 meq PO DAILY 02/28/15 [History] Psyllium Seed (With Sugar) [Natural Fiber Lax Powder] 1 tbsp PO TID 02/28/15 [History] Sennosides/Docusate Sodium [Senna-Docusate Sodium] 1 tab PO BID 02/28/15 [History] risperiDONE [RisperiDAL] 0.5 mg PO BID 02/28/15 [History] Triamterene/Hydrochlorothiazid [Dyazide 37.5-25] 1 tab PO Q48H 05/17/16 [History] Alendronate Sodium [Fosamax] 70 mg PO Q7D 10/13/20 [History] Cholecalciferol (Vitamin D3) [Vitamin D3] 1,000 units PO DAILY 10/13/20 [History] Erythromycin Base [Erythromycin 0.5% Ophth Oint] 1 applic EYEBOTH BEDTIME 10/13/20 [History] Naproxen 500 mg PO Q12H 10/13/20 [History] Oxybutynin [Oxybutynin ER] 5 mg PO QPM 10/13/20 [History] Torsemide [Demadex] 20 mg PO DAILY 10/13/20 [History] Ibuprofen 200 mg PO Q6H PRN 10/14/20 [History] Magnesium Hydroxide [Milk of Magnesia] 30 ml PO DAILY PRN 10/14/20 [History] Sodium Chloride 1 gm PO TID #90 tablet 10/17/20 [Rx] Past Medical History HEENT History: Reports: Impaired Vision Other HEENT History: Glasses Cardiovascular 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 Respiratory 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 Gastrointestinal History: Reports: Chronic Constipation Genitourinary History: Reports: Urinary Incontinence 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 Musculoskeletal History: Reports: Osteoporosis Neurological 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 Psychiatric History: Reports: Depression, Other (See Below) Other Psychiatric History: Delirim, depressive disorder, severe intellectual disabilities Endocrine/Metabolic 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 Hematologic 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 Immunologic 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 Oncologic (Cancer) 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 Dermatologic 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 - Infectious Disease History Infectious Disease 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, Novel Coronavirus - Past Surgical History Head Surgeries/Procedures: Reports: None Social & Family History - Family History Family Medical History: No Pertinent Family History - Caffeine Use Caffeine Use: Reports: Coffee - Living Situation & Occupation Living situation: Reports: Single, Extended Care Facility Occupation: Disabled ED ROS GENERAL - Review of Systems Review Of Systems: Comprehensive ROS is negative, except as noted in HPI. ED EXAM, GENERAL - Physical Exam Exam: See Below Exam Limited By: No Limitations General Appearance: Alert, WD/WN, Mild Distress, Other (discomfort) Ears: Hearing Grossly Normal Throat/Mouth: Normal Voice, No Airway Compromise Head: Atraumatic Neck: Non-Tender, Full Range of Motion Respiratory/Chest: No Accessory Muscle Use, Rales, Rhonchi Cardiovascular: Regular Rate, Rhythm GI/Abdominal: Soft, Non-Tender (Female) Exam: Deferred Rectal (Female) Exam: Deferred Extremities: Pedal Edema, Other (2+ bilateral) Neurological: Alert, Normal Cognition, No Motor/Sensory Deficits Psychiatric: Flat Affect Skin Exam: Warm, Dry, Normal Color Lymphatic: No Adenopathy Course - Vital Signs Last Recorded V/S: Last Vital Signs Temp 29.4 C L 10/28/20 03:11 Pulse 63 10/28/20 04:17 Resp 16 10/28/20 04:17 BP 116/45 L 10/28/20 04:17 Pulse Ox 95 10/28/20 04:17 - Orders/Labs/Meds Orders: Active Orders 24 hr Category Date Time Status Admission Diagnosis [ADT] Routine ADT 10/28/20 04:19 Ordered Admission Status [Patient Status] [ADT] Routine ADT 10/28/20 04:19 Active CULTURE BLOOD [BC] Stat Lab 10/28/20 03:00 Results Labs: Laboratory Tests 10/28/20 10/28/20 10/28/20 Range/Units 02:40 03:00 03:00 WBC 9.8 (5.0-10.0) 10^3/uL RBC 3.01 L (4.2-5.4) 10^6/uL Hgb 9.0 L (12.0-16.0) g/dL Hct 27.1 L (37.0-47.0) % MCV 90.0 (80-100) fL MCH 29.9 (27.0-34.0) pg MCHC 33.2 (33.0-35.0) g/dL Plt Count 184 (150-450) 10^3/uL Neut % (Auto) 81.8 H (42.2-75.2) % Lymph % (Auto) 5.1 L (20.5-50.1) % Caroline % (Auto) 10.9 H (2-8) % Eos % (Auto) 2.0 (1.0-3.0) % Baso % (Auto) 0.2 (0.0-1.0) % D-Dimer, Quantitative 944 H (0-400) ng/mL Sodium (136-145) mmol/L Potassium (3.5-5.1) mmol/L Chloride (98-107) mmol/L Carbon Dioxide (21-32) mmol/L Anion Gap (7-13) mEq/L BUN (7-18) mg/dL Creatinine (0.55-1.02) mg/dL Est Cr Clr Drug Dosing Estimated GFR (MDRD) BUN/Creatinine Ratio (No establ ref range) Glucose (74-99) mg/dL Lactic Acid (0.4-2.0) mmol/L Calcium (8.5-10.1) mg/dL Total Bilirubin (0.2-1.0) mg/dL AST (15-37) U/L ALT (14-59) U/L Alkaline Phosphatase (46-116) U/L Troponin I (0.000-0.056) ng/mL B-Natriuretic Peptide (0-100) pg/ml Total Protein (6.4-8.2) g/dL Albumin (3.4-5.0) g/dL Globulin Albumin/Globulin Ratio SARS CoV-2 RNA Rapid ARON Negative (NEGATIVE) 10/28/20 10/28/20 10/28/20 Range/Units 03:00 03:00 03:00 WBC (5.0-10.0) 10^3/uL RBC (4.2-5.4) 10^6/uL Hgb (12.0-16.0) g/dL Hct (37.0-47.0) % MCV (80-100) fL MCH (27.0-34.0) pg MCHC (33.0-35.0) g/dL Plt Count (150-450) 10^3/uL Neut % (Auto) (42.2-75.2) % Lymph % (Auto) (20.5-50.1) % Caroline % (Auto) (2-8) % Eos % (Auto) (1.0-3.0) % Baso % (Auto) (0.0-1.0) % D-Dimer, Quantitative (0-400) ng/mL Sodium 136 (136-145) mmol/L Potassium 4.9 (3.5-5.1) mmol/L Chloride 101 (98-107) mmol/L Carbon Dioxide 26 (21-32) mmol/L Anion Gap 13.9 H (7-13) mEq/L BUN 17 (7-18) mg/dL Creatinine 0.84 (0.55-1.02) mg/dL Est Cr Clr Drug Dosing TNP Estimated GFR (MDRD) > 60 BUN/Creatinine Ratio 20.2 (No establ ref range) Glucose 82 (74-99) mg/dL Lactic Acid 0.8 (0.4-2.0) mmol/L Calcium 9.0 (8.5-10.1) mg/dL Total Bilirubin 0.7 (0.2-1.0) mg/dL AST 65 H (15-37) U/L ALT 57 (14-59) U/L Alkaline Phosphatase 134 H (46-116) U/L Troponin I 0.024 (0.000-0.056) ng/mL B-Natriuretic Peptide 315 H (0-100) pg/ml Total Protein 5.8 L (6.4-8.2) g/dL Albumin 3.2 L (3.4-5.0) g/dL Globulin 2.6 Albumin/Globulin Ratio 1.23 SARS CoV-2 RNA Rapid ARON (NEGATIVE) Meds: Medications Discontinued Medications Generic Name Dose Route Start Last Admin Trade Name Freq PRN Reason Stop Dose Admin Furosemide 20 mg 10/28/20 04:19 Lasix IVPUSH 10/28/20 04:20 ONETIME ONE - Re-Assessments/Exams Free Text/Narrative Re-Assessment/Exam: 10/28/20 04:08 Kathleen Becker [phone] guardian contacted and case discussed with her and she replied to follow the pt's wishes per directive as DNR comfort measures. 10/28/20 04:[address] Mariee who kindly admitted pt. Departure - Departure Time of Disposition: 04:22 Disposition: Admitted As Inpatient 68 Condition: Poor Clinical Impression: Pulmonary edema cardiac cause, CHF, Congestive heart failure, Hypoxemia, DNR (do not resuscitate), Comfort measures only status Hypotension Qualifiers: Hypotension type: other hypotension type Qualified Code(s): I95.89 - Other hypotension - Discharge Information Forms: ED Department Discharge Sepsis Event Note (ED) - Focused Exam Vital Signs: Vital Signs Temp Pulse Resp BP Pulse Ox 10/28/20 04:17 63 16 116/45 L 95 10/28/20 04:02 67 17 106/47 L 94 L 10/28/20 03:46 68 19 99/60 94 L 10/28/20 03:41 63 18 83/31 L 90 L 10/28/20 03:18 66 17 83/31 L 94 L 10/28/20 03:11 29.4 C L 63 18 88/50 L 94 L 10/28/20 03:00 63 18 99/41 L 93 L - My Orders Last 24 Hours: My Active Orders 10/28/20 03:00 CULTURE BLOOD [BC] Stat 10/28/20 04:19 Admission Diagnosis [ADT] Routine Admission Status [Patient Status] [ADT] Routine - Assessment/Plan Last 24 Hours: My Active Orders 10/28/20 03:00 CULTURE BLOOD [BC] Stat 10/28/20 04:19 Admission Diagnosis [ADT] Routine Admission Status [Patient Status] [ADT] Routine
[2020-10-28 03:49] LABS: ANION GAP 13.9 mEq/L (7-13); CHLORIDE,CL 101 mmol/L (98-107); SODIUM,NA 136 mmol/L (136-145)
--- NOTE | 2020-10-28 03:55 | CR ---
PROCEDURE INFORMATION: Exam: XR Chest, 1 View Exam date and time: 10/28/2020 3:45 AM Age: 80 years old Clinical indication: Shortness of breath; Additional info: SOB TECHNIQUE: Imaging protocol: XR of the chest Views: 1 view. COMPARISON: CR Chest 1V Frontal 10/26/2020 9:31 AM FINDINGS: Lungs: Prominent bilateral ground-glass opacities are present in the mid and lower hemithoraces, findings that could represent pulmonary edema although bilateral pneumonia cannot be excluded. These findings are similar to those seen on 10/26/2020. Pleural space: Unremarkable. No pleural effusion. No pneumothorax. Heart/Mediastinum: Unremarkable. No cardiomegaly. Bones/joints: Unremarkable. IMPRESSION: Prominent ground-glass opacity seen in the mid and lower hemithoraces bilaterally, findings that may represent pulmonary edema although bilateral pneumonia cannot be excluded. These findings are similar to those present on 10/26/2020.
[2020-10-28] MEDS ORDERED: Furosemide 20 MG/2 ML VIAL IVPUSH ONE (04:19)
[2020-10-28] MEDS ORDERED: Docusate Sodium 100 MG Cap PO PRN (05:06)
[2020-10-28] MEDS ORDERED: Acetaminophen/HYDROcodone 325-10 MG Tab PO PRN (05:06)
[2020-10-28] MEDS ORDERED: Acetaminophen 325 MG Tab PO PRN (05:06)
[2020-10-28] MEDS ORDERED: methylPREDNISolone Sodium Succinate 40 MG/1 ML SDV IVPUSH ONE (05:11)
--- NOTE | 2020-10-28 06:47 | HP ---
CHIEF COMPLAINT: Low blood pressure and hypoxia. HISTORY OF PRESENT ILLNESS: The patient is a 80-year-old female resident of a [facility] ([facility]), who was admitted through the emergency room because of hypoxia and low blood pressure. Basically, the patient is DNR and DNI, and she is here for admission for comfort cares. She was seen in the emergency room on 10/26/2020, because of hypoxia, pulmonary edema, and congestive heart failure, and as the patient is DNR and DNI, she was sent home on oxygen as well as with her diuretics, but now, the patient has developed low blood pressure in addition to her hypoxia. She has recently been in the hospital for recurrent seizure and was started on Keppra and diuretics, and her diuretics were stopped due to hyponatremia. She was recently seen by her primary care provider and was also started on diuretics because of the increasing generalized edema. Because of the above and continued decline of the patient, she was admitted for comfort cares. PAST MEDICAL HISTORY: Remarkable for recent seizures, depression, severe intellectual disabilities, and overactive bladder. FAMILY HISTORY: Noncontributory. SOCIAL HISTORY: The patient is a resident of a [facility]. The patient is a nonsmoker and non-alcohol drinker. REVIEW OF SYSTEMS: Not obtained from the patient as the patient is lethargic. HOME MEDICATIONS: Vitamin C, imipramine, Myrbetriq, multivitamins, potassium, fiber, Senokot, Risperdal, Dyazide, Fosamax, cholecalciferol, naproxen, oxybutynin, torsemide, and milk of magnesia. ALLERGIES: Cefprozil, cephalosporin, and haloperidol. PHYSICAL EXAMINATION: General: The patient is lethargic, on a 10% nonrebreather mask, and in mild distress. Vital Signs: Blood pressure is 116/45, pulse of 63, respirations of 16, and saturation is 95% on a nonrebreather mask. SHEENT: Normocephalic. Neck: Supple. There is some JVD noted. Heart: Regular rate and rhythm. Lungs: Diminished breath sounds bilaterally with rhonchi and crackles bilaterally. Abdomen: Obese, otherwise soft and nontender. Extremities: Remarkable for pedal edema bilaterally. LABORATORY WORKUP: WBC is 9.8, hemoglobin is 9, hematocrit is 27.1, and platelets are 184. D-dimer is 944. Comp panel is remarkable for an anion gap of 13.9 and an AST of 65 and an ALT of 57, and the rest of the panel is unremarkable. Troponin is less than 0.024, and BNP is 315. SARS-COVID RNA is negative. RADIOGRAPHIC DATA: Chest x-ray showed prominent ground-glass opacities seen in the mid and lower hemithoraces bilaterally and findings that may represent pulmonary edema, although bilateral pneumonia cannot be excluded, and this was present from 10/26/2020. ADMITTING DIAGNOSES: 1. Bilateral pulmonary edema. 2. Congestive heart failure. 3. Seizures. 4. Overactive bladder. 5. Severe intellectual disability. TREATMENT PLAN: The patient is going to be admitted to acute care, General Medicine floor. She will be on IV Lasix. I am going to also empirically start the patient on steroids, and she will be on oxygen and the rest of the management as necessary. CODE STATUS: Again, the patient is DNR, DNI, and comfort measures. PROGNOSIS: Very guarded. [facility] /[id number] MTDShannan
[2020-10-28] MEDS: Furosemide 20 MG/2 ML VIAL IVPUSH SCH ×2 (09:00→13:50)
[2020-10-28] MEDS ORDERED: Potassium Chloride 10 MEQ Tab.ER PO SCH (09:00)
[2020-10-28] MEDS ORDERED: Enoxaparin 40 MG/0.4 ML Syringe SUBCUT SCH (09:00)
[2020-10-28] MEDS: Morphine 2 MG/ML SYRINGE IVPUSH PRN ×5 (09:35→22:45)
[2020-10-28] MEDS ORDERED: Albuterol 0.083% 2.5 MG/3 ML Neb Soln NEB PRN (10:02)
[2020-10-28] MEDS: risperiDONE 0.5 MG Tab PO SCH ×2 (10:08→22:41)
[2020-10-28] MEDS: LORazepam 2 MG/ML SDV IVPUSH PRN ×4 (10:13→23:09)
[2020-10-28] MEDS: Sodium Chloride 0.9% 10 ML Syringe FLUSH PRN ×2 (22:45→23:11)
[2020-10-29] MEDS: Morphine 2 MG/ML SYRINGE IVPUSH PRN ×3 (01:13→05:45)
[2020-10-29] MEDS: Sodium Chloride 0.9% 10 ML Syringe FLUSH PRN ×4 (01:13→05:45)
[2020-10-29 01:43] VITALS: BP 69/43
[2020-10-29] MEDS: LORazepam 2 MG/ML SDV IVPUSH PRN ×2 (02:59→07:36)
[2020-10-29 06:35] LABS: ANION GAP 11.4 mEq/L (7-13)
[2020-10-29 07:36] VITALS: PULSE 83
--- NOTE | 2020-10-29 10:01 | PN ---
DATE: 10/29/2020 SUBJECTIVE: The patient continues to decline and this morning, the patient is unresponsive with agonal breathing. LABORATORY DATA: Lab workup this morning, WBC is 9.5, hemoglobin is 8.8, hematocrit is 27.8, platelet is 200. Chem-6: Potassium is 5.4, BUN is 33, creatinine is 1.72, and glucose is 65. The rest of the panel unremarkable. OBJECTIVE: Vital Signs: Blood pressure is 69/43, pulse of 83, respirations of 22, temperature of 95.3. Heart: Regular. Lungs: Diminished breath sounds bilaterally. Abdomen: Soft, nontender. Extremities: Remarkable for the pedal edema bilaterally. PLAN: Continue with palliative care and the patient's prognosis is dismal. [facility] /[id number]
--- NOTE | 2020-10-29 10:38 | DISCH ---
FINAL DIAGNOSES: 1. Bilateral pulmonary edema. 2. Congestive heart failure. 3. Acute respiratory failure. 4. Seizure. 5. Overactive bladder. BRIEF HISTORY OF PRESENT ILLNESS: The patient is a 80-year-old female from [facility] who was admitted through the emergency room because of hypoxia and low blood pressure and noted to have pulmonary edema and was admitted for comfort care/palliative care. PERTINENT LAB, X-RAY, AND OTHER TESTS: On admission, WBC is 9.8, hemoglobin is 9, hematocrit is 27.1, platelet is 184. D-dimer is 944. AST of 65, ALT of 57. Troponin is less than 0.02. BNP is 315 and COVID is negative and chest x-ray showed prominent ground-glass opacity in the mid and lower hemithoraces bilaterally and finding that may represent pulmonary edema. HOSPITAL COURSE: The patient was admitted to Acute Care General Medicine floor and the patient was placed on comfort care/palliative care and she was on oxygen and was also given IV Lasix as well as lorazepam and morphine. The patient continued to decline, but remained comfortable and the patient went into cardiopulmonary arrest at 8:10 on the morning of 10/29/2020. [facility] /[id number]
== END 2020-10-29 08:10 | disposition expired | DRG 951 ==
LOC: DL.ED 02:31 → DL.MS 04:19
PROVIDERS: ADMIT Internal Medicine; ATTEND Internal Medicine
DX: Z51.5 Encounter for palliative care (principal); R09.02 Hypoxemia; J96.01 Acute respiratory failure with hypoxia; I50.9 Heart failure, unspecified; I46.9 Cardiac arrest, cause unspecified; Z20.828 Contact with and (suspected) exposure to other viral communicable diseases; Z66 Do not resuscitate; G40.909 Epilepsy, unspecified, not intractable, without status epilepticus; F32.9 Major depressive disorder, single episode, unspecified; I95.89 Other hypotension; F72 Severe intellectual disabilities; F79 Unspecified intellectual disabilities; N32.81 Overactive bladder; H54.7 Unspecified visual loss; K59.09 Other constipation; M81.0 Age-related osteoporosis without current pathological fracture; R32 Unspecified urinary incontinence; Z28.82 Immunization not carried out because of caregiver refusal; Z88.1 Allergy status to other antibiotic agents; Z88.8 Allergy status to other drugs, medicaments and biological substances; Z79.899 Other long term (current) drug therapy; Z99.81 Dependence on supplemental oxygen
CPT/HCPCS: 36415; 71045; 80048; 80053; 83605; 83880; 84484; 85025; 85379; 87040; 99285-25; J1650; J1940; J2060; J2270; J2920; U0002